=== PATIENT | female | born 1950 | race Caucasian/White ===

== ENCOUNTER → 2017-11-29 06:33 | Outpatient (CLI) | payer MEDICARE, MEDICAID, SELFPAY ==
--- NOTE | 2017-11-29 06:37 | NM_ITS ---
NM juan carlos perf SPECT rest str CLINICAL INDICATION: Chest pain, shortness of breath, hypertension, tobacco use, high cholesterol, positive family history ITS.REASON: CHEST PAIN ORDERING PHYSICIAN: Claudia Guzman PATIENT AGE: 67 years COMPARISON: None DOSE: 10.39 mCi technetium Myoview intravenously at rest followed by 32.0 mCi technetium Myoview following the intravenous administration of 0.4 mg of Lexiscan. Resting blood pressure is 193/77. Stress blood pressure 168/74. FINDINGS: Ejection fraction is calculated to be 55%. SPECT and polar map images reviewed. There is a defect within the anteroseptal region which shows some redistribution on the delayed images. This does not completely fill in on the delayed images. There is also a small defect in the lateral wall towards the base of the heart which is less apparent on the delayed images. IMPRESSION: 1. Normal ejection fraction of 55%. 2. Ischemic changes in the anteroseptal wall and lateral wall at the base of the heart.
--- NOTE | 2017-11-29 06:41 | XR_ITS ---
XR shoulder LT min 2V HISTORY: ITS.REASON: ACUTE PAIN LEFT SHOULDER ORDERING PHYSICIAN: Claudia Guzman PATIENT AGE: 67 years COMPARISON: None FINDINGS: No fracture or dislocation. No lytic or blastic change. There is normal mineralization. There are mild osteoarthritic changes of the glenohumeral joint and acromioclavicular joint. No significant subacromial stenosis. IMPRESSION: Mild osteoarthritic change of the acromioclavicular joint and glenohumeral joint
--- NOTE | 2017-11-29 06:41 | XR_ITS ---
XR chest 2V HISTORY: Chest pain and cough, smoker ITS.REASON: CHEST PAIN,COUGH ORDERING PHYSICIAN: Claudia Guzman PATIENT AGE: 67 years COMPARISON: 08/18/2016 FINDINGS: The cardiomediastinal silhouette and pulmonary vascularity are within normal limits. There is coarsening of the bronchovascular markings consistent with smoking-related lung disease. No lobar consolidation or collapse is evident. There is a calcified granuloma in the left upper lobe.. No acute bony abnormalities. IMPRESSION: Coarsened bronchovascular markings consistent with smoking-related lung disease with prominence of the interstitium. Otherwise negative
--- NOTE | 2017-11-29 07:32 | HMH.ITSHM ---
FISH OIL EZETIMIBE BUSPIRONE RANITIDINE LEVOTHYROXINE METOPROLOL MELOXICAM ASA
--- NOTE | 2017-11-29 08:50 | CI_ITS ---
Cerebrovascular Exam Indications: 433.10 Occlusion/stenosis of carotid artery without cerebral infarction. IMPRESSIONS 1. The bilateral vertebral arteries are patent with normal antegrade flow. 2. Study suggests 50-69% stenosis involving the right internal carotid artery and the left internal carotid artery. History: Risk factors: Current tobacco use. Hypertension. Hyperlipidemia. Carotid duplex study. Complete study and Doppler flow study including spectral analysis, color and mcdonough scale imaging. Height: Height: 152.4cm. Height: 60in. Weight: Weight: 71.7kg. Weight: 157.7lb. Body mass index: BMI: 30.9kg/m^2. Body surface area: BSA: 1.77m^2. Location: Vascular laboratory. Patient status: Outpatient. Tables: Arterial flow: + +--------+--------+ Location V chrystal V ed + +--------+--------+ Right CCA - proximal 80.1cm/s 11.8cm/s + +--------+--------+ Right CCA - distal 82.5cm/s 18.9cm/s + +--------+--------+ Right ECA 165cm/s -------- + +--------+--------+ Right ICA - proximal 266cm/s 51.6cm/s + +--------+--------+ Right ICA - mid 186cm/s 46cm/s + +--------+--------+ Right ICA - distal 147cm/s 26.9cm/s + +--------+--------+ Right vertebral 60.6cm/s -------- + +--------+--------+ Left CCA - proximal 99.9cm/s 19.1cm/s + +--------+--------+ Left CCA - distal 99.9cm/s 18cm/s + +--------+--------+ Left ECA 167cm/s -------- + +--------+--------+ Left ICA - proximal 259cm/s 49.4cm/s + +--------+--------+ Left ICA - mid 126cm/s 27.5cm/s + +--------+--------+ Left ICA - distal 133cm/s 33.4cm/s + +--------+--------+ Left vertebral 57cm/s -------- + +--------+--------+ Velocity ratios: + + + + + + Right, V sys Right, V ed Left, V sys Left, V ed + + + + + + Max ICA/dist CCA 3.22 2.73 2.59 2.74 + + + + + + (Report amended ) Electronically signed by: Teo Waggoner [id number]
--- NOTE | 2017-11-29 08:50 | CA_ITS ---
PROCEDURE: 2-D M-mode and color Doppler study INDICATIONS FOR THE TEST: Chest pain X COPD Heart Murmur Tobacco SmokingX Palpitations Fatigue Syncope Edema HypertensionXDiabetes Mellitus Rheumatic Fever SOBXDOE Obesity HyperlipidemiaX Family History HDX Additional History PATIENT INFORMATION HEIGHT: 60 WEIGHT:158 GENDER: Female B/P:120/80 2-D/M-MODE INTERPRETATION: 2-D MEASUREMENTS OBSERVED VALUES IN CMS Right Ventricular Dimension (RVDd) 1.5 Interventricular Septum (Thickness)(IVsd) .8 Left Ventricular Internal Dimensions(LVIDd) 5.0 Left Ventricular Posterior Wall (Thickness)(LVPWd) .8 Aortic Root 2.1 Aortic Cusp Separation 1.7 Left Atrial Dimensions (LAD) 3.3 2D 1. Left atrium is mildly enlarged, left ventricle is normal size, there is mild concentric left ventricular hypertrophy, visually estimated ejection fraction 55% with no obvious regional wall motion abnormality. 2. The right atrium and right ventricle are normal size and contractility. 3. The aortic valve is minimally thickened and calcified leaflet continue to display mobility. 4. The mitral and tricuspid valve leaflets are minimally thickened. 5. The pulmonic valve is poorly visualized. 6. No significant pericardial effusion noted. DOPPLER INTERROGATION: Doppler interrogation of the aortic, mitral and tricuspid valvular presence of mild mitral and tricuspid regurgitation, tricuspid and jet velocity is insufficient for calculation of the right ventricular systolic pressure, grade 1 diastolic dysfunction seen with tissue Doppler evidence of raised left atrial pressure. CONCLUSION: 1. Mildly enlarged left atrium, normal left ventricular size, mild concentric left ventricular hypertrophy, visually estimated ejection fraction 55% with no obvious regional wall motion abnormality, grade 1 diastolic dysfunction seen with tissue Doppler evidence of raised left atrial pressure. 2. Mild mitral and tricuspid regurgitation 3. No significant pericardial effusion noted.
== END ==
PROVIDERS: Family Provider Family Medicine; PCP Nurse Practitioner; Visit Provider Nurse Practitioner
DX: R07.9 Chest pain, unspecified (principal); M25.512 Pain in left shoulder; R05 Cough; I65.23 Occlusion and stenosis of bilateral carotid arteries
CPT/HCPCS: 71046; 73030; 78452; 93017; 93306; 93880; A9502; J2785

== ENCOUNTER 2017-12-14 09:08 | Day surgery (SDC) | payer MEDICARE, MEDICAID, SELFPAY ==
[2017-12-14] VITALS (11 sets, daily range): BP systolic 131–169; BP diastolic 54–61; PULSE 60–66; RESP 16–18; TEMP 36.7; O2SAT 95–99; BMI 32.8
--- NOTE | 2017-12-14 | IR_ITS ---
CARDIAC CATHETERIZATION DATE OF CATHETERIZATION:12/14/2017 11:40 AM PROCEDURES: 1. Left heart catheterization 2. Left ventriculogram 3. Selective coronary angiogram 4. Catheter placement in the left subclavian artery 5. Subclavian artery angiogram 6. Right femoral artery retrograde angiogram INDICATION FOR TEST: 1. Abnormal Myoview high risk 2. Class IV angina pectoris 3. Preoperative evaluation for left subclavian artery stenosis preceding bypass surgery 4. Right femoral artery and iliac artery stenosis Informed consent was obtained prior to the procedure. COMPLICATIONS: None ESTIMATED BLOOD LOSS: Less than 10 ml. TECHNIQUE: One percent lidocaine was used to anesthetize the right groin. The right femoral artery was accessed via the Seldinger technique. A 4-English sheath was placed in the right femoral artery. The JL-4 and JR-4 catheter was also used to perform left heart catheterization left ventriculogram and selective coronary angiogram. Retrograde angiography of the right femoral and iliac artery system was performed due to atherosclerotic disease and difficulty passing wire. A mini exchange was performed in order to exchange the right and left Sree catheter. The JR 4 catheter was used to selectively intubate the left subclavian artery and perform angiography. At the end of the procedure the sheath was removed good hemostasis was achieved using manual pressure patient transferred to the postop holding area in stable condition ANGIOGRAPHIC RESULTS: 1. The left main artery has a proximal complex greater than 90% stenosis which is either a clot or ruptured plaque with a distal eccentric 80% stenosis 2. The left anterior descending artery has proximal 10% stenoses with a focal 90% stenosis immediately after the first septal pest control worker and large first diagonal artery. The remaining LAD has mild disease. The large first diagonal artery has mid vessel 50% stenosis along a tortuous bend 3. The circumflex artery is a codominant vessel and has an ostial 80% stenosis with a proximal 70 and 90% stenosis 4. The right coronary artery is a codominant system and has a long proximal 80% stenosis with mid vessel 70% stenoses. Distally the posterior descending artery there is a 60-70% stenosis. The posterior lateral ventricular branch also has mid vessel 60% stenosis 5. The NICHOLAS ventriculogram reveals normal 65% 6. The left ventricular end-diastolic pressure 10 mmHg 7. The left subclavian artery has 30% nonflow limiting stenoses with a widely patent proximal ANDREA 8. The right common iliac artery has 60-70% stenoses with a concentric 60% stenosis in the distal external iliac artery IMPRESSION: 1. Critical proximal distal left main disease with critical three-vessel disease 2. Patent left subclavian artery and patent ANDREA 3. Normal ejection fraction 4. Normal left ventricular end-diastolic pressure 5. Moderate to severe right iliac disease as described above PLAN: 1. Patient will be transferred immediately to [facility] under the care of cardiothoracic surgery for urgent CABG at the earliest possible 2. Start aspirin and high intensity statin
[2017-12-14 10:43] LABS: Basophils # 0.1 K/mm3 (0-0.2); Basophils % 0.5 % (0.1-2.0); Eosinophils # 0.4 K/mm3 (0.0-0.4); Eosinophils % 4.5 % (0.1-12.0); Hematocrit 49.1 % (37.0-47.0); Hemoglobin 16.1 g/dL (12.2-16.2); Lymphocytes # 2.4 K/mm3 (0.7-4.5); Lymphocytes % 25.4 K/mm3 (10-50); Mean Corpuscular HGB Conc 32.8 g/dL (31.8-35.4); Mean Corpuscular Hemoglobin 29.1 pg (27.0-31.2); Mean Corpuscular Volume 88.8 fl (81-99); Mean Platelet Volume 8.8 fl (7.4-10.4); Monocytes # 0.5 K/mm3 (0.1-1.0); Monocytes % 5.8 % (1.7-9.3); Neutrophils # 5.9 K/mm3 (1.8-7.8); Neutrophils % 63.8 % (37.0-80.0); Platelet Count 292 K/mm3 (142-424); Red Blood Count 5.53 M/mm3 (4.20-5.40); Red Cell Distribution Width 13.5 % (11.5-17.5); White Blood Count 9.3 K/mm3 (4.8-10.8)
[2017-12-14 10:46] LABS: Anion Gap 13.6 mEq/L (5-15); Blood Urea Nitrogen 18 mg/dL (7-18); Carbon Dioxide 24 mmol/L (21.0-32.0); Chloride 101 mmol/L (98-107); Creatinine Clearance Estimated 61 mL/min (0-300); Creatinine,Serum 1.06 mg/dL (0.55-1.02); Estimated Glomerular Filt Rate 52 ml/min (>60); GFR (African American) 62 ML/MIN (>60); Glucose 110 mg/dL (74-106); Potassium 4.6 mmoL/L (3.5-5.1); Sodium 134 mmol/L (136-145)
== END 2017-12-14 12:08 | disposition short-term general hospital (02) ==
PROVIDERS: Family Provider Family Medicine; PCP Nurse Practitioner; Visit Provider Internal Medicine
DX: I70.8 Atherosclerosis of other arteries (principal); I25.119 Atherosclerotic heart disease of native coronary artery with unspecified angina pectoris; Z72.0 Tobacco use; I65.29 Occlusion and stenosis of unspecified carotid artery; R94.39 Abnormal result of other cardiovascular function study; R94.31 Abnormal electrocardiogram [ECG] [EKG]; Z79.899 Other long term (current) drug therapy
CPT/HCPCS: 36225; 75710; 80048; 85025; 93458; 99152; C1725; C1769; J1644; Q9967

== ENCOUNTER → 2018-04-11 09:11 | Outpatient (REF) | payer MEDICARE, MEDICAID, SELFPAY | LOC: LAB 09:11 | PROVIDERS: Visit Provider Nurse Practitioner | DX: T81.31XA Disruption of external operation (surgical) wound, not elsewhere classified, initial encounter (principal) | CPT/HCPCS: 87070; 87077; 87186; 87205 ==

== ENCOUNTER → 2018-06-26 09:14 | Outpatient (REF) | payer MEDICARE, MEDICAID, SELFPAY | LOC: LAB 09:14 | PROVIDERS: Visit Provider Nurse Practitioner | DX: T81.31XA Disruption of external operation (surgical) wound, not elsewhere classified, initial encounter (principal) | CPT/HCPCS: 87070; 87077; 87186; 87205 ==

== ENCOUNTER → 2018-07-10 09:31 | Outpatient (CLI) | payer MEDICARE, MEDICAID, SELFPAY ==
--- NOTE | 2018-07-10 09:32 | CI_ITS ---
Cerebrovascular Exam IMPRESSIONS 1. The bilateral vertebral arteries are patent with normal antegrade flow. 2. Study suggests 70-99% stenosis involving the left internal carotid artery. Disease progression from the study of 2001. 3. Study suggests 70-99% stenosis involving the right internal carotid artery. Disease progression from the study of 2001. History: Coronary artery disease. Transient ischemic attack. Risk factors: Hypertension. Hyperlipidemia. Carotid duplex study. Complete study and Doppler flow study including spectral analysis, color and mcdonough scale imaging. Location: Vascular laboratory. Patient status: Outpatient. CRITICAL FINDINGS - Reported to: Dr. Tennille Funes office - Read back and verified. - 07/10/2018 - 10:00 - AMEYA 70-99%, [id number]% Tables: Arterial flow: + +--------+--------+ Location V sys V ed + +--------+--------+ Right CCA - proximal 119cm/s 22cm/s + +--------+--------+ Right CCA - distal 98.2cm/s 24.4cm/s + +--------+--------+ Right ECA 231cm/s -------- + +--------+--------+ Right ICA - proximal 394cm/s 132cm/s + +--------+--------+ Right ICA - mid 119cm/s 25.8cm/s + +--------+--------+ Right ICA - distal 96.5cm/s 35.9cm/s + +--------+--------+ Right vertebral 70.7cm/s -------- + +--------+--------+ Left CCA - proximal 123cm/s 23.6cm/s + +--------+--------+ Left CCA - distal 138cm/s 32.3cm/s + +--------+--------+ Left ECA 232cm/s -------- + +--------+--------+ Left ICA - proximal 330cm/s 66.8cm/s + +--------+--------+ Left ICA - mid 164cm/s 40.4cm/s + +--------+--------+ Left ICA - distal 130cm/s 28.1cm/s + +--------+--------+ Left vertebral 42.6cm/s -------- + +--------+--------+ Velocity ratios: + + + + + + Right, V sys Right, V ed Left, V sys Left, V ed + + + + + + Max ICA/dist CCA 4.01 5.41 2.39 2.07 + + + + + + (Report amended ) Electronically signed by: Teo Waggoner [id number]
== END ==
PROVIDERS: Family Provider Family Medicine; PCP Nurse Practitioner; Visit Provider Internal Medicine
DX: I65.23 Occlusion and stenosis of bilateral carotid arteries (principal)
CPT/HCPCS: 93880

== ENCOUNTER 2018-07-18 09:00 | Outpatient (RCR) | payer MEDICARE, MEDICAID, SELFPAY ==
--- NOTE | 2018-04-11 10:08 | HMH.PTOPWND ---
Rehab Outpt Wound Evaluation Rehab OP Wound Evaluation Start: 04/11/18 08:31 Freq: Status: Active Protocol: Document 04/11/18 09:57 GILBERT (Rec: 04/11/18 10:07 GILBERT [id number]) Electronically Signed By Celso Carr, PT 04/11/18 09:57 Subjective/History History History Pt is 67 yo white female who presents with c.o non healing sternal incision x ~ 3 mos S/P CABG x 5 performed ~ 4 mos ago. She reports having several different spots of her incision that have closed and re-opened since her surgery. She reports having trouble healing the incisions from her las surgery which was a lap CCY. Sh reports no c/o pain, but tender to palpation and with dressing changes. She reports PMH of HTN, PAD, hypothyroid, and asthma. Wound Eval Wound Lower Chest Wound Type Incision Is This a Chronic Wound Yes Wound Length (cm) 1.5 Wound Width (cm) 1.0 Wound Bed Appearance Beefy Red Percentage Granulated (%) 100 Wound Margins Description Well Defined Tunneling Position 12 Tunneling Depth (cm) 2.0 Surrounding Tissue Appearance Jeannette Drainage Description Purulent Drainage Amount Small Comment Tegaderm Ag mesh Primary Dressing Composite Wound Problems/Impairments Impairments Problems/Impairmments Palpation Tenderness Subjective C/O Pain Impaired Self Care/Self Management Prognosis Rehab Potential Good Clinical Impression Consistent with Diagnosis Yes Short Term Goals Number of Weeks 4 Decreased Palpation Tenderness Yes: to min Decrease Wound Area Yes: by 25% Decrease Drainage Yes: by 100% Shelter Goals Number of Weeks 8 Decreased Palpation Tenderness Yes: to none Decrease Wound Area Yes: by 75% Patient to be Ind w/ Home Wound Care/ Yes Dressing Changes Outpatient Therapy Plan of Care Treatment Plan May Include Therapeutic Exercise Including Home Yes Exercise Program Manual Therapy Techniques Yes Neuromuscular Re-education Yes Wound Care Yes Eval/Re-Eval Yes Frequency
== END 2018-07-18 09:01 | disposition home or self-care (01) ==
LOC: PT 09:00
PROVIDERS: Family Provider Family Medicine; PCP Nurse Practitioner; Visit Provider Nurse Practitioner
DX: T81.31XA Disruption of external operation (surgical) wound, not elsewhere classified, initial encounter (principal)
CPT/HCPCS: 97162; 97597

== ENCOUNTER → 2018-07-18 14:12 | Outpatient (CLI) | payer MEDICARE, MEDICAID, SELFPAY ==
--- NOTE | 2018-07-18 14:12 | CT_ITS ---
CT angio coronary artery INDICATION: Carotid artery stenosis, abnormal duplex of the carotid artery, decreasing size in left eye ITS.REASON: carotid artery stenosis ORDERING PHYSICIAN: Eddie Null MD PATIENT AGE: 68 years COMPARISON: None TECHNIQUE: Axial images are obtained following the bolus administration of 100 mL's of Isovue-370 contrast. Sagittal and coronal reformatted images are reviewed as well. All CT scans at the facility use one or more dose reduction, viz: automated exposure control, ma/kV adjustment per patient size (including targeted exams where dose is matched to indication, i.e. head), or iterative reconstruction technique. FINDINGS: Right carotid artery: Atherosclerotic changes with calcification involves the aortic arch. The right brachiocephalic artery shows no significant stenosis. Right common carotid artery shows no significant stenosis. Calcific plaque is present in the right carotid bifurcation and proximal ICA. There is severe stenosis of the ostium of the right ICA of 70%. Just distal to the ostium is calcific plaque with severe stenosis. It is somewhat difficult to measure the exact degree of stenosis due to the calcification and being hardening artifact. The stenosis is at least however, 75%. The carotid superior to this region shows no significant narrowing. There is some calcific plaque just proximal to the intracranial portion of the carotid and calcific plaque is also present involving the cavernous portion of the right carotid. Left carotid artery: The common carotid shows no significant stenosis. Irregular calcific plaque is present at the carotid bifurcation and proximal ICA with 50-60% stenosis of the ostium of the left ICA. The upper aspect of the cervical carotid has an unremarkable appearance. Atherosclerotic changes are present involving the cavernous portion of the left ICA. Both vertebral arteries are small with the right vertebral is dominant of the 2 vertebral arteries. Basilar artery is somewhat small. IMPRESSION: 1. Atheromatous changes of the carotid arteries with 70% stenosis of the ostium of the right ICA at least 75% stenosis of the proximal right ICA 1 cm distal to the ostium 2. 50-60% stenosis of the ostium of the left ICA
[2018-07-18 15:13] LABS: Blood Urea Nitrogen 12 mg/dL (7-18); Calcium 8.8 mg/dL (8.5-10.1); Carbon Dioxide 25 mmol/L (21.0-32.0); Chloride 104 mmol/L (98-107); Creatinine,Serum 0.78 mg/dL (0.55-1.02); Estimated Glomerular Filt Rate 73 ml/min (>60); GFR (African American) 89 ML/MIN (>60); Glucose 144 mg/dL (74-106); Sodium 138 mmol/L (136-145)
== END ==
PROVIDERS: Family Provider Family Medicine; PCP Nurse Practitioner; Visit Provider Internal Medicine
DX: I65.23 Occlusion and stenosis of bilateral carotid arteries; E78.5 Hyperlipidemia, unspecified; H54.40 Blindness, one eye, unspecified eye; I20.9 Angina pectoris, unspecified; I48.91 Unspecified atrial fibrillation; I63.9 Cerebral infarction, unspecified; J43.9 Emphysema, unspecified; R07.89 Other chest pain; R42 Dizziness and giddiness; Z95.1 Presence of aortocoronary bypass graft; I11.9 Hypertensive heart disease without heart failure
CPT/HCPCS: 36415; 75574; 80048; Q9967

== ENCOUNTER → 2019-02-09 08:38 | Outpatient (CLI) | payer MEDICARE, MEDICAID, SELFPAY ==
--- NOTE | 2019-02-09 08:40 | CI_ITS ---
Cerebrovascular Exam Indications: 433.10 Occlusion/stenosis of carotid artery without cerebral infarction. IMPRESSIONS 1. The bilateral vertebral arteries are patent with normal antegrade flow. 2. Study suggests less than 20% stenosis involving the right internal carotid artery. Carotid surgery Aug 2018 on right ICA. 3. Study suggests 70-99% stenosis involving the left internal carotid artery. Labs, prior tests, procedures, and surgery: Right endarterectomy. Labs, prior tests, procedures, and surgery: Right endarterectomy. Carotid duplex study. Complete study and Doppler flow study including spectral analysis, color and mcdonough scale imaging. Location: Vascular laboratory. Patient status: Outpatient. Tables: Arterial flow: + +--------+--------+ Location V sys V ed + +--------+--------+ Right CCA - proximal 105cm/s 14.1cm/s + +--------+--------+ Right CCA - distal 106cm/s 20.4cm/s + +--------+--------+ Right ECA 171cm/s -------- + +--------+--------+ Right ICA - proximal 102cm/s 19.6cm/s + +--------+--------+ Right ICA - mid 77cm/s 12.6cm/s + +--------+--------+ Right ICA - distal 112cm/s 29.1cm/s + +--------+--------+ Right vertebral 55.8cm/s -------- + +--------+--------+ Left CCA - proximal 109cm/s 22.8cm/s + +--------+--------+ Left CCA - distal 127cm/s 22.8cm/s + +--------+--------+ Left ECA 248cm/s -------- + +--------+--------+ Left ICA - proximal 272cm/s 54.1cm/s + +--------+--------+ Left ICA - mid 121cm/s 28.9cm/s + +--------+--------+ Left ICA - distal 126cm/s 33.9cm/s + +--------+--------+ Left vertebral 39cm/s -------- + +--------+--------+ Velocity ratios: + + + + + + Right, V sys Right, V ed Left, V sys Left, V ed + + + + + + Max ICA/dist CCA 1.06 1.43 2.14 2.37 + + + + + + (Report amended ) Electronically signed by: Teo Waggoner [id number]
== END ==
PROVIDERS: PCP Internal Medicine Hematology & Oncology; Visit Provider Urology
DX: I65.23 Occlusion and stenosis of bilateral carotid arteries (principal)
CPT/HCPCS: 93880

== ENCOUNTER → 2019-03-10 10:00 | Outpatient (CLI) | payer MEDICARE, MEDICAID, SELFPAY ==
[2019-03-10 10:27] LABS: Basophils # 0.1 K/mm3 (0-0.2); Basophils % 0.6 % (0.1-2.0); Eosinophils # 0.1 K/mm3 (0.0-0.4); Eosinophils % 0.8 % (0.1-12.0); Hematocrit 35.4 % (37.0-47.0); Hemoglobin 11.9 g/dL (12.2-16.2); Lymphocytes # 1.7 K/mm3 (0.7-4.5); Lymphocytes % 20.1 % (10-50); Mean Corpuscular HGB Conc 33.6 g/dL (31.8-35.4); Mean Corpuscular Hemoglobin 27.9 pg (27.0-31.2); Mean Corpuscular Volume 82.9 fl (81-99); Mean Platelet Volume 9.5 fl (7.4-10.4); Monocytes # 0.6 K/mm3 (0.1-1.0); Monocytes % 7.2 % (1.7-9.3); Neutrophils % 71.4 % (37.0-80.0); Platelet Count 226 K/mm3 (142-424); Red Blood Count 4.27 M/mm3 (4.20-5.40); Red Cell Distribution Width 13.7 % (11.5-17.5); White Blood Count 8.4 K/mm3 (4.8-10.8)
[2019-03-10 11:16] LABS: Anion Gap 18.9 mEq/L (5-15); Blood Urea Nitrogen 12 mg/dL (7-18); Calcium 8.4 mg/dL (8.5-10.1); Carbon Dioxide 22 mmol/L (21.0-32.0); Chloride 101 mmol/L (98-107); Creatinine,Serum 1.12 mg/dL (0.55-1.02); Estimated Glomerular Filt Rate 48 ml/min (>60); GFR (African American) 58 ML/MIN (>60); Glucose 110 mg/dL (74-106); Potassium 3.9 mmoL/L (3.5-5.1); Sodium 138 mmol/L (136-145)
== END ==
PROVIDERS: Visit Provider Internal Medicine
DX: Z98.890 Other specified postprocedural states (principal); Z79.899 Other long term (current) drug therapy
CPT/HCPCS: 36415; 80048; 85025

== ENCOUNTER → 2019-03-12 13:19 | Outpatient (CLI) | payer MEDICARE, MEDICAID, SELFPAY ==
--- NOTE | 2019-03-12 13:45 | CT_ITS ---
CT angio neck INDICATION: Cerebrovascular accident, stroke, carotid artery disease, previous surgery ITS.REASON: cta carotids ORDERING PHYSICIAN: Eddie Null MD PATIENT AGE: 68 years COMPARISON: None TECHNIQUE: Axial images are obtained following the intravenous administration 100 mL of Optiray 350 contrast. Sagittal and coronal reformatted images are reviewed as well. All CT scans at the facility use one or more dose reduction, viz: automated exposure control, ma/kV adjustment per patient size (including targeted exams where dose is matched to indication, i.e. head), or iterative reconstruction technique. FINDINGS: Atheromatous changes involving the aortic arch. No significant stenosis of the ostium of the great vessels. There has been an interval right carotid and arterectomy. No significant stenosis is now evident of the carotid artery on the right. There is eccentric atheromatous plaque in the distal right internal carotid artery without significant stenosis. Intracranial calcific plaque also noted. No significant stenosis. Calcific plaque is once again noted at the ostium of the left internal carotid artery in the proximal left ICA. High-grade stenosis involves the ostium of the left internal carotid artery proximally 60% there is approximately 25-30% stenosis involving the proximal internal carotid slightly distal to the ostium. These findings are not significantly changed. Vertebrals are patent. There is proximal 40% stenosis involving the proximal right subclavian artery just distal to the vertebral origin Prior CABG. There is a hyperdense nodule involving the deep lobe of the parotid gland on the right at 1. A x 1.5 cm. This may represent a pleomorphic adenoma not significant changed. IMPRESSION: 1. Status post right carotid artery and arterectomy with resolution of the previously noted stenosis. No significant stenosis evident on the right. 2. Persistent calcific plaque at the ostium of the left internal carotid artery with approximately 60% stenosis not significantly changed. Small amount of calcific plaque just distal to this region with approximately 25-30% stenosis. 3. 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
== END ==
PROVIDERS: PCP Family Medicine; Visit Provider Internal Medicine
DX: I65.29 Occlusion and stenosis of unspecified carotid artery (principal)
CPT/HCPCS: 70498; Q9967

== ENCOUNTER 2019-03-12 16:55 | Emergency (ER) | payer MEDICARE, MEDICAID, SELFPAY ==
[2019-03-12 17:10] VITALS: BP 160/100; PULSE 74; RESP 18; TEMP 36.4; O2SAT 99; BMI 32.0
[2019-03-12 17:17] LABS: Microscopic, Urine URINE MICROSCOPIC (MICROSCOPIC)
[2019-03-12 17:19] LABS: Appearance,Urine CLEAR (Clear); Bilirubin,Urine Negative (Negative); Blood, Urine Negative (Negative); Color,Urine YELLOW (Yellow); Glucose,Urine (UA) Negative (Negative); Ketones,Urine Negative (Negative); Leukocyte Esterase,Urine Negative (Negative); Nitrate,Urine Negative (Negative); Protein,Urine Negative (Negative); Specific Gravity, Urine <= 1.005 (1.005-1.030); Urobilinogen,Urine 0.2 EU/dl (0.2)
[2019-03-12 17:29] LABS: WBC,Urine Occasional #/hpf (0-3)
[2019-03-12 17:30] LABS: Bacteria,Urine Trace /lpf
--- NOTE | 2019-03-12 17:33 | CT_ITS ---
CT abdomen pelvis wo con CLINICAL INDICATION: Left lower quadrant pain, left flank pain, nausea ITS.REASON: left flank ORDERING PHYSICIAN: Celso Saldaña MD PATIENT AGE: 68 years COMPARISON: 08/18/2016 TECHNIQUE: Axial images obtained with sagittal and coronal reformats. All CT scans at the facility use one or more dose reduction, viz: automated exposure control, ma/kV adjustment per patient size (including targeted exams where dose is matched to indication, i.e. head), or iterative reconstruction technique. PROCEDURE: Oral Contrast: None IV Contrast: None . FINDINGS: Lower thorax: No acute finding There is a 1.8 cm isodense lesion in the right hepatic lobe unchanged. Other smaller isodensity's are also noted. These may represent hepatic cyst. Postcholecystectomy change. The spleen, adrenal glands, and pancreas are unremarkable. There is striated nephrogram appearance to both kidneys. Contrast is present within the renal collecting system. The patient had a previous contrast-enhanced study of the neck 4 hours earlier. There are postsurgical changes of the anterior abdominal wall centrally in the upper abdomen with mild diastases. No intestinal obstruction or free air. No evidence of appendicitis. The appendix is not identified. There is colonic diverticulosis. There is some mild stranding of the pericolic fat in the left pelvic region. This is a question clinical significance evident somewhat similar appearance on 08/18/2016. No abscess or free air. No pelvic mass. Prior hysterectomy. There is mild dilatation of the mid abdominal aorta at 2.8 cm. Mild facet arthritic changes are present. IMPRESSION: 1. Colonic diverticulosis. There may be some minimal pericolic inflammatory changes in the sigmoid region raising the question of mild diverticulitis. 2. Striated nephrogram of the kidneys nonspecific and may be seen with polynephritis, acute tubular necrosis, or hypotension. 3. No change multiple isodense lesions of the liver.
--- NOTE | 2019-03-12 17:34 | HMH.EDGENADL ---
ED Disposition Clinical Impression: Diverticulitis Disposition: Home, Self-Care Condition on Discharge: Good Instructions: DI for Low Back Pain Prescriptions: metroNIDAZOLE [Flagyl 500mg Tablet] 500 mg PO Q8H 7 Days #21 tab Referrals: Ortiz Campbell MD [Primary Care Provider] - - Critical Care Critical Care Time: No Attestation: On 03/12/19, the high probability of a clinically significant, sudden or life threatening deterioration of the following system(s) required my full and direct attention, intervention and personal management. The time I documented below is in addition to time spent performing reported procedures but includes the following listed in this critical care notation. Medical Decision Making - Medical Records Medical records reviewed: Yes: I reviewed the patient's medical records. - Rasheed Inquiry Pt receiving controlled substance: No Vital Signs: 03/12/19 17:10 Temperature 97.5 F L Temperature Source Oral Pulse Rate [Right Radial] 74 Respiratory Rate 18 Blood Pressure [Right Arm] 160/100 H Blood Pressure Mean [Right Arm] 120 Blood Pressure Source [Right Arm] Manual Cuff/ Auscultation Blood Pressure Position [Right Arm] Sitting 02 Sat by Pulse Oximetry 99 Oxygen Delivery Method Room Air - Lab Data Lab results reviewed: Yes: I reviewed the patient's lab results. Lab Results 03/12/19 17:11: Urine Color Yellow, Urine Appearance Clear, Urine pH 7.0, Ur Specific [place] <= 1.005, Urine Protein Negative, Urine Glucose (UA) Negative, Urine Ketones Negative, Urine Blood Negative, Urine Nitrate Negative, Urine Bilirubin Negative, Urine Urobilinogen 0.2, Ur Leukocyte Esterase Negative, Urine WBC Occasional, Ur Squamous Epith Cells 3-5, Urine Bacteria Trace 03/12/19 17:50: WBC 7.3, RBC 4.61, Hgb 12.6, Hct 37.0, MCV 80.3 L, MCH 27.3, MCHC 34.0, RDW 13.5, Plt Count 252, MPV 9.3, Neut % (Auto) 63.4, Lymph % (Auto) 25.4, [place] % (Auto) 7.3, Eos % (Auto) 3.4, Baso % (Auto) 0.5, Neut # (Auto) 4.6, Lymph # (Auto) 1.9, [place] # (Auto) 0.5, Eos # (Auto) 0.3, Baso # (Auto) 0.0 03/12/19 17:50: Sodium 136, Potassium 4.4, Chloride 101, Carbon Dioxide 23, Anion Gap 16.4 H, BUN 16 D, Creatinine 1.28 H, Estimated Creat Clear 49, Estimated GFR 41 L, Est GFR ( Amer) 50 L, Glucose 102, Calcium 9.0, Total Bilirubin 0.5, AST 17, ALT 23, Alkaline Phosphatase 95, Total Protein 7.3, Albumin 3.1 L, Globulin 4.2 H, Albumin/Globulin Ratio 0.7 L, Lipase 190 Result diagrams: 03/12/19 17:50 03/12/19 17:50 Orders (Tests/Meds): ED MEDICATIONS Discontinued Medications Generic Name Dose Route Start Last Admin Trade Name Devenq PRN Reason Stop Dose Admin Acetaminophen 500 mg 03/12/19 17:58 03/12/19 18:10 Tylenol 500mg Tablet PO 03/12/19 17:59 500 mg ONCE ONE Administration Ketorolac Tromethamine 30 mg 03/12/19 17:34 Toradol 30mg/Ml Vial IV 03/12/19 17:35 ONCE ONE Metronidazole 500 mg 03/12/19 18:43 Metronidazole 500mg Tablet PO 03/12/19 18:44 ONCE ONE Protocol ORDERS Category Date Time Status CT abdomen pelvis wo con Stat Cat Scan 03/12/19 17:33 Taken - CT Data CT Scan: Abdomen, Pelvis Time Received: 18:[address] Reviewed: Yes: I discussed the CT results w/the radiologist Preliminary Findings: Abnormal (+diverticulitis and interstial nephritis) Medical Decision Narrative: flagyl, oral fluids, see your doctor, return if worse, tylenol General Adult HPI - General Chief complaint: Back Pain/Injury Stated complaint: stomach pain Time Seen by Provider: 03/12/19 17:34 Mode of Arrival: Ambulatory Limitations: No Limitations Description of Symptoms (Recalled from ER Triage Doc. by RN): Pt c/o pain across lower back and LLQ pain x3 days, pt reports pain worsening today. Pt reports she thinks she has a bladder infection . Pt denies burning with urination. Pt reports nausea. - History of Present Illness HPI narrative: mild to mod left flank and lower
--- NOTE | 2019-03-12 17:37 | ED_ITS ---
ED Disposition Clinical Impression: Diverticulitis Disposition: Home, Self-Care Condition on Discharge: Good Instructions: DI for Low Back Pain Prescriptions: metroNIDAZOLE [Flagyl 500mg Tablet] 500 mg PO Q8H 7 Days #21 tab Referrals: Ortiz Campbell MD [Primary Care Provider] - - Critical Care Critical Care Time: No Attestation: On 03/12/19, the high probability of a clinically significant, sudden or life threatening deterioration of the following system(s) required my full and direct attention, intervention and personal management. The time I documented below is in addition to time spent performing reported procedures but includes the fo sally listed in this critical care notation. Medical Decision Making - Medical Records Medical records reviewed: Yes: I reviewed the patient's medical records. - Rasheed Inquiry Pt receiving controlled substance: No Vital Signs: 03/12/19 17:10 Temperature 97.5 F L Temperature Source Oral Pulse Rate [Right Radial] 74 Respiratory Rate 18 Blood Pressure [Right Arm] 160/100 H Blood Pressure Mean [Right Arm] 120 Blood Pressure Source [Right Arm] Manual Cuff/ Auscultation Blood Pressure Position [Right Arm] Sitting 02 Sat by Pulse Oximetry 99 Oxygen Delivery Method Room Air - Lab Data Lab results reviewed: Yes: I reviewed the patient's lab results. Lab Results 03/12/19 17:11: Urine Color Yellow, Urine Appearance Clear, Urine pH 7.0, Ur Specific [place] <= 1.005, Urine Protein Negative, Urine Glucose (UA) Negative, Urine Ketones Negative, Urine Blood Negative, Urine Nitrate Negative, Urine Bilirubin Negative, Urine Urobilinogen 0.2, Ur Leukocyte Esterase Negative, Urine WBC Occasional, Ur Squamous Epith Cells 3-5, Urine Bacteria Trace 03/12/19 17:50: WBC 7.3, RBC 4.61, Hgb 12.6, Hct 37.0, MCV 80.3 L, MCH 27.3, MCHC 34.0, RDW 13.5, Plt Count 252, MPV 9.3, Neut % (Auto) 63.4, Lymph % (Auto) 25.4, [place] % (Auto) 7.3, Eos % (Auto) 3.4, Baso % (Auto) 0.5, Neut # (Auto) 4.6, Lymph # (Auto) 1.9, [place] # (Auto) 0.5, Eos # (Auto) 0.3, Baso # (Auto) 0.0 03/12/19 17:50: Sodium 136, Potassium 4.4, Chloride 101, Carbon Dioxide 23, Anion Gap 16.4 H, BUN 16 D, Creatinine 1.28 H, Estimated Creat Clear 49, Estimated GFR 41 L, Est GFR ( Amer) 50 L, Glucose 102, Calcium 9.0, Total Bilirubin 0.5, AST 17, ALT 23, Alkaline Phosphatase 95, Total Protein 7.3, Albumin 3.1 L, Globulin 4.2 H, Albumin/Globulin Ratio 0.7 L, Lipase 190 Result diagrams: 03/12/19 17:50 03/12/19 17:50 Orders (Tests/Meds): ED MEDICATIONS Discontinued Medications Generic Name Dose Route Start Last Admin Trade Name Devenq PRN Reason Stop Dose Admin Acetaminophen 500 mg 03/12/19 17:58 03/12/19 18:10 Tylenol 500mg Tablet PO 03/12/19 17:59 500 mg ONCE ONE Administration Ketorolac Tromethamine 30 mg 03/12/19 17:34 Toradol 30mg/Ml Vial IV 03/12/19 17:35 ONCE ONE Metronidazole 500 mg 03/12/19 18:43 Metronidazole 500mg Tablet PO 03/12/19 18:44 ONCE ONE Protocol ORDERS Category Date Time Status CT abdomen pelvis wo con Stat Cat Scan 03/12/19 17:33 Taken - CT Data
[2019-03-12 17:56] LABS: Basophils % 0.5 % (0.1-2.0); Eosinophils # 0.3 K/mm3 (0.0-0.4); Eosinophils % 3.4 % (0.1-12.0); Hemoglobin 12.6 g/dL (12.2-16.2); Lymphocytes # 1.9 K/mm3 (0.7-4.5); Lymphocytes % 25.4 % (10-50); Mean Corpuscular Hemoglobin 27.3 pg (27.0-31.2); Mean Corpuscular Volume 80.3 fl (81-99); Mean Platelet Volume 9.3 fl (7.4-10.4); Monocytes # 0.5 K/mm3 (0.1-1.0); Monocytes % 7.3 % (1.7-9.3); Neutrophils # 4.6 K/mm3 (1.8-7.8); Neutrophils % 63.4 % (37.0-80.0); Platelet Count 252 K/mm3 (142-424); Red Blood Count 4.61 M/mm3 (4.20-5.40); Red Cell Distribution Width 13.5 % (11.5-17.5); White Blood Count 7.3 K/mm3 (4.8-10.8)
[2019-03-12 18:07] LABS: Alanine Aminotransferase 23 U/L (12-78); Albumin Level 3.1 gm/dL (3.4-5.0); Albumin/Globulin Ratio 0.7 (1.1-1.8); Alkaline Phosphatase 95 U/L (46-116); Anion Gap 16.4 mEq/L (5-15); Aspartate Amino Transferase 17 U/L (15-37); Bilirubin,Total 0.5 mg/dL (0.2-1.0); Blood Urea Nitrogen 16 mg/dL (7-18); Carbon Dioxide 23 mmol/L (21.0-32.0); Chloride 101 mmol/L (98-107); Creatinine Clearance Estimated 49 mL/min (50-200); Creatinine,Serum 1.28 mg/dL (0.55-1.02); Estimated Glomerular Filt Rate 41 ml/min (>60); GFR (African American) 50 ML/MIN (>60); Globulin 4.2 gm/dl (1.3-3.2); Glucose 102 mg/dL (74-106); Lipase 190 u/L (73-393); Potassium 4.4 mmoL/L (3.5-5.1); Sodium 136 mmol/L (136-145); Total Protein,Serum 7.3 gm/dL (6.4-8.2)
--- NOTE | 2019-03-12 18:08 | PC.NURSE ---
pt to CT
--- NOTE | 2019-03-12 18:41 | PC.NURSE ---
JAJA ESTRADA spoke with Hernando at this time
[2019-03-12 18:52] VITALS: BP 150/86; PULSE 72; RESP 18; O2SAT 99
[2019-03-12 19:05] VITALS: BP 150/86; PULSE 72; RESP 18; TEMP 36.4; O2SAT 99
--- NOTE | 2019-03-12 19:06 | PC.NURSE ---
flagyl prescription called into [facility] pharmacy per pt request
== END 2019-03-12 19:07 | disposition home or self-care (01) ==
PROVIDERS: Emergency Provider Emergency Medicine Emergency Medical Services; PCP Family Medicine
DX: K57.92 Diverticulitis of intestine, part unspecified, without perforation or abscess without bleeding (principal); E03.9 Hypothyroidism, unspecified; E78.5 Hyperlipidemia, unspecified; I10 Essential (primary) hypertension; F17.210 Nicotine dependence, cigarettes, uncomplicated; Z88.0 Allergy status to penicillin; Z88.5 Allergy status to narcotic agent
CPT/HCPCS: 70498; 74176; 80053; 81001; 83690; 85025; 99283; Q9967

== ENCOUNTER 2019-08-23 09:00 | Outpatient (RCR) | payer MEDICARE, SELFPAY ==
--- NOTE | 2019-07-04 09:15 | HMH.PTOPWND ---
Rehab Outpt Wound Evaluation Rehab OP Wound Evaluation Start: 07/04/19 08:54 Freq: Status: Active Protocol: Document 07/04/19 08:54 COLLETTEKYLIE (Rec: 07/04/19 09:15 COLLETTEKYLIE [id number]) Electronically Signed By Santana Magallanes PT 07/04/19 08:54 Subjective/History History History 69 year old female pt. is referred to PT for a wound on her LLE that has not been healing. Wound occured on March 10 when pt. fell on her concrete steps. Pt. has been using bactrin PO. Pt. treated wound at home w/OTC medications for several months w/o healing. Pt. reports that she is not diabetic but states that she smokes about 3 cigarettes a day and has circulatory problems in her LE . Note and eval done by student PT [facility] Subjective Subjective Pt. reports that she is frustrated from having to deal with this wound which she has had since the beginning of March. Note done by student PT [facility] Wound Eval Subjective History Subjective 69 year old female referred to PT for a wound on her LLE that occured March 10 due to a fall on her concrete steps. Note done by student PT [facility] Wound Left Lower [place] Wound Type Abrasion Is This a Chronic Wound Yes Wound Length (cm) 2 Wound Width (cm) 1.4 Wound Bed Appearance Beefy Red,Yellow,Slough Percentage Granulated (%) 90 Percentage of Slough (%) 10 Percentage of Eschar (Yellow) (%) 10 Wound Margins Description Well Defined Surrounding Tissue Temperature Warm Drainage Description Serous Drainage Amount Scant Drainage Odor No Odor Dressing Status Soiled Wound Topical Solution/Irrigant Antibiotic Irrigant Primary Dressing Silver Dressing Comment Tegaderm AG mesh Wound Secondary Dressing Type Absorbant Pad Comment Optifoam light Wound Debridement Method SharpsForceps Wound Debridement Amount of Tissue Minimal Removed
== END 2019-08-23 09:05 | disposition home or self-care (01) ==
LOC: PT 09:00
PROVIDERS: Visit Provider Nurse Practitioner
DX: T14.8XXA Other injury of unspecified body region, initial encounter (principal); M79.605 Pain in left leg
CPT/HCPCS: 97161; 97164; 97597

== ENCOUNTER → 2019-09-12 08:08 | Outpatient (CLI) | payer MEDICARE, SELFPAY ==
--- NOTE | 2019-09-12 08:12 | CA_ITS ---
APPROVED REPORT Procurement Analyst: Lacey Israel CRT Laterality: Bilateral Indications: bilateral carotid artery stenosis Risk Factors Hypertension: Hyperlipidemia Smoking Surgery/Intervention Endarterectomy: right Doppler Spectral Velocity Analysis ECA (R) 196.40/17.10 cm/s ECA (L) 170.00/12.80 cm/s dICA (R) 98.00/24.70 cm/s dICA (L) 127.90/28.40 cm/s Angela (R) 119.70/26.90 cm/s Angela (L) 105.30/25.00 cm/s pICA (R) 87.70/21.40 cm/s pICA (L) 279.30/28.90 cm/s dCCA (R) 90.80/12.90 cm/s dCCA (L) 87.50/19.50 cm/s pCCA (R) 119.10/18.00 cm/s pCCA (L) 104.80/15.70 cm/s Vert (R) 42.20/7.80 cm/s Vert (L) 36.80/36.80 cm/s Conclusion Duplex evaluation demonstrates stenosis of the right proximal internal carotid artery <20% with PSV <140 cm/sec, EDV <100 cm/sec, and IC/CC Ratio <4.0. Duplex evaluation demonstrates stenosis of the left proximal internal carotid artery in the range of 50-69% with PSV =140 cm/sec, EDV <100 cm/sec, and IC/CC Ratio <4.0. Duplex evaluation demonstrates antegrade flow of the bilateral Vertebral Arteries. Electronically signed by : Teo Waggoner MD 09/12/2019 19:14:19
== END ==
PROVIDERS: PCP Nurse Practitioner; Visit Provider Urology
DX: I65.23 Occlusion and stenosis of bilateral carotid arteries (principal)
CPT/HCPCS: 93880

== ENCOUNTER → 2019-11-13 10:06 | Outpatient (POV) | payer MEDICARE, SELFPAY | PROVIDERS: Visit Provider Dermatology | DX: Z00.00 Encounter for general adult medical examination without abnormal findings (principal) ==

== ENCOUNTER → 2019-12-04 08:59 | Outpatient (POV) | payer MEDICARE, SELFPAY | PROVIDERS: PCP Dermatology; Visit Provider Dermatology | DX: Z00.00 Encounter for general adult medical examination without abnormal findings (principal) ==

== ENCOUNTER → 2019-12-18 09:03 | Outpatient (POV) | payer MEDICARE, SELFPAY | PROVIDERS: PCP Dermatology; Visit Provider Dermatology | DX: Z00.00 Encounter for general adult medical examination without abnormal findings (principal) ==

== ENCOUNTER → 2020-02-13 08:24 | Outpatient (CLI) | payer MEDICARE, SELFPAY ==
[2020-02-13 10:42] LABS: Alanine Aminotransferase 13 U/L (12-78); Albumin Level 4.5 g/dl (3.5-5.0); Alkaline Phosphatase 66 U/L (38-126); Aspartate Amino Transferase 21 U/L (14-36); Bilirubin,Indirect 0.7 mg/dL (0.0-0.9); Bilirubin,Total 0.7 mg/dl (0.2-1.3); Bilirubin,Unconjugated 0.9 mg/dL (0.0-1.1); Chol/HDL Ratio 2.3 (1-3.5); Cholesterol 138 mg/dl (140-200); HDL Cholesterol 60 mg/dl (40-60); Total Protein,Serum 6.9 g/dl (6.3-8.2); Triglycerides 147 mg/dl (30-150); VLDL Cholesterol 29 mg/dL (0-40)
[2020-02-13 10:53] LABS: Direct LDL Cholesterol 75.41 mg/dL (100-129)
== END ==
PROVIDERS: Visit Provider Urology
DX: E78.2 Mixed hyperlipidemia (principal); I25.10 Atherosclerotic heart disease of native coronary artery without angina pectoris
CPT/HCPCS: 36415; 80061; 80076

== ENCOUNTER → 2020-03-19 13:27 | Outpatient (CLI) | payer MEDICARE, MEDICAID, SELFPAY ==
--- NOTE | 2020-03-19 13:28 | CA_ITS ---
APPROVED REPORT Boring Machine Operator Helper: Vi Narvaez RVT Laterality: Bilateral Study Quality: Adequate Indications: carotid bruit, Carotid stenosis Risk Factors Hypertension: Hyperlipidemia Surgery/Intervention Endarterectomy: right Doppler Spectral Velocity Analysis ECA (R) 106.10/15.80 cm/s ECA (L) 229.60/16.00 cm/s dICA (R) 100.00/8.20 cm/s dICA (L) 102.80/20.40 cm/s Angela (R) 105.60/15.30 cm/s Angela (L) 105.60/18.40 cm/s pICA (R) 122.60/18.00 cm/s pICA (L) 240.40/42.30 cm/s dCCA (R) 102.10/15.40 cm/s dCCA (L) 112.90/17.20 cm/s pCCA (R) 93.70/12.80 cm/s pCCA (L) 109.20/18.40 cm/s Vert (R) 43.90/8.20 cm/s Vert (L) 34.40/7.40 cm/s ICA/CCA 1.20 ICA/CCA 2.13 Conclusion Study suggests less than 20% stenosis of the right internal cartoid artery unchanged from the 09/12/19 study. Study suggests 50-69% stenosis of the left internal cartoid artery unchanged from the 09/12/19 study. Antegrade flow seen bilateral vertebral arteries. Electronically signed by : Teo Waggoner MD 03/19/2020 16:14:16
--- NOTE | 2020-03-19 13:28 | CT_ITS ---
PROCEDURE: CT ABDOMEN PELVIS WO CON CLINICAL INDICATION: AAA Follow-up abdominal aortic aneurysm COMPARISON: [facility] CT abdomen pelvis wo con from 03/12/2019 TECHNIQUE: Axial images obtained with sagittal and coronal reformats. All CT scans at the facility use one or more dose reduction, viz: automated exposure control, ma/kV adjustment per patient size (including targeted exams where dose is matched to indication, i.e. head), or iterative reconstruction technique. FINDINGS: LOWER THORAX: No acute finding ABDOMEN & PELVIS: No change in the 1.6 cm right hepatic lobe cyst. There has been a prior cholecystectomy. There has been a prior median sternotomy. The spleen, adrenal glands, pancreas, and kidneys have an unremarkable appearance. There is mild dilatation of the infrarenal abdominal aorta measuring up to 2.5 cm transverse and 2.6 cm AP not significantly changed. No evidence of acute retroperitoneal hemorrhage. There are few scattered small retroperitoneal lymph nodes which are not significantly changed. There are scattered colonic diverticula but no evidence of diverticulitis. There are post hysterectomy changes. No evidence of appendicitis, intestinal obstruction, or free air. IMPRESSION: Stable CT appearance of the abdomen and pelvis. No change in the infrarenal abdominal aortic aneurysm Dictated by: Teo Waggoner MD 03/20/2020 12:58 Electronically signed by Teo Waggoner MD in [place] 03/20/2020 12:58
== END ==
PROVIDERS: PCP Nurse Practitioner; Visit Provider Urology
DX: E78.5 Hyperlipidemia, unspecified (principal); I10 Essential (primary) hypertension; I25.10 Atherosclerotic heart disease of native coronary artery without angina pectoris; I63.9 Cerebral infarction, unspecified; J43.9 Emphysema, unspecified; R42 Dizziness and giddiness; Z95.1 Presence of aortocoronary bypass graft; I73.9 Peripheral vascular disease, unspecified; I65.23 Occlusion and stenosis of bilateral carotid arteries
CPT/HCPCS: 74176; 93880; Q9967

== ENCOUNTER 2020-06-21 17:37 | Emergency (ER) | payer MEDICARE, MEDICAID, SELFPAY ==
[2020-06-21 17:51] VITALS: BP 148/82; PULSE 91; RESP 20; O2SAT 97; BMI 31.2
--- NOTE | 2020-06-21 18:08 | HMH.EDUTC ---
[facility] [place] Clinical Impression: Cellulitis of leg without foot, right, Wound infection Disposition: Home, Self-Care Condition on Discharge: Good Instructions: Cellulitis Additional Instructions: Follow up with your primary care physician on Tuesday for a wound recheck to make sure this is starting to get better. Take the medications as prescribed. Apply the topical antibiotic ointment (mupirocin) as directed. You should not be allergic to it going by your allergy list. Rest the leg and keep it elevated as much time as tolerated. IF YOU HAVE FEVER, CHILLS, OR ANY WORSENING SYMPTOMS PLEASE GO STRAIGHT TO THE ER Prescriptions: Sulfamethoxazole/Trimethoprim [Bactrim 400-80 mg (SS) Tablet] 1 tab PO BID 10 Days #20 tab Transmission Status: Received by [id number] Mupirocin [Bactroban 2% Ointment 22gm tube] 1 applicatio TP TID 7 Days #1 tube Transmission Status: Received by [id number] clindamycin HCL [Clindamycin HCl 300mg Cap] 300 mg PO Q8 10 Days #30 cap Transmission Status: Received by [id number] Referrals: Claudia Guzman APRN [Primary Care Provider] - Time of Disposition: 19:19 Medical Decision Making - Medical Records Medical records reviewed: No: I reviewed the patient's medical records. - Rasheed Inquiry Pt receiving controlled substance: No Vital Signs: 06/21/20 17:51 06/21/20 19:11 06/21/20 19:20 Temperature 98.8 F 98.8 F Temperature Source Oral Pulse Rate 91 H Pulse Rate [Right Brachial] 91 H Respiratory Rate 20 20 Blood Pressure 148/82 H Blood Pressure [Right Arm] 148/82 H Blood Pressure Mean [Right Arm] 104 Blood Pressure Source [Right Arm] Automatic Cuff Blood Pressure Position [Right Arm] Sitting 02 Sat by Pulse Oximetry 97 Oxygen Delivery Method Room Air - Lab Data Lab results reviewed: Yes: I reviewed the patient's lab results. Lab Results 06/21/20 18:30: WBC 7.4, RBC 4.66, Hgb 13.8, Hct 38.9, MCV 83.4, MCH 29.6, MCHC 35.6 H, RDW 14.4, Plt Count 254, MPV 9.3, Neut % (Auto) 58.2, Lymph % (Auto) 28.4, [place] % (Auto) 9.4 H, Eos % (Auto) 2.9, Baso % (Auto) 1.1, Neut # (Auto) 4.3, Lymph # (Auto) 2.1, [place] # (Auto) 0.7, Eos # (Auto) 0.2, Baso # (Auto) 0.1, ESR 44 H 06/21/20 18:30: Sodium 136, Potassium 4.4, Chloride 104, Carbon Dioxide 21 L, Anion Gap 15.4 H, BUN 23 H, Creatinine 1.60 H, Estimated Creat Clear 37, Estimated GFR 32 L, Est GFR ( Amer) 38 L, Glucose 102 H, Calcium 9.9, Total Bilirubin 1.1, AST 24, ALT 12, Alkaline Phosphatase 83, Total Protein 7.3, Albumin 4.1, Globulin 3.2, Albumin/Globulin Ratio 1.3 Result diagrams: 06/21/20 18:30 06/21/20 18:30 Orders (Tests/Meds): ED MEDICATIONS Discontinued Medications Generic Name Dose Route Start Last Admin Trade Name Freq PRN Reason Stop Dose Admin Clindamycin HCl 300 mg 06/21/20 19:19 06/21/20 19:32 Cleocin 150mg Capsule PO 06/21/20 19:20 300 mg ONCE ONE Administration Protocol ORDERS Category Date Time Status Wound Culture and Gram Stain Stat Micro 06/21/20 18:25 Results [facility] [place] - General Stated complaint: laceration R leg Time Seen by Provider: 06/21/20 18:08 Mode of Arrival: Ambulatory Source of Information: Patient Limitations: No Limitations HEENT Symptoms (Recalled from RN notes): No Resp Symptoms (Recalled from RN notes): No Skin Symptoms (Recalled from RN notes): Yes MS Symptoms (Recalled from RN notes): No Functional Status (Recalled from RN notes): WNL - History of Present Illness Provider Complaint: She states that approx 1 week ago her dog jumped up on here and scratched her right lower leg with a toe nail. The wound seemed like it was healing, but over the past 2 days it has began to get red around it and have some clear drainage. She denies that she is diabetic. She is allergic to tetanus immunizations. - Related Data Home Medications Medication Instructions Recorded Confirmed al
[2020-06-21 19:01] LABS: Basophils # 0.1 K/mm3 (0-0.2); Basophils % 1.1 % (0.1-2.0); Eosinophils # 0.2 K/mm3 (0.0-0.4); Eosinophils % 2.9 % (0.1-12.0); Hematocrit 38.9 % (37.0-47.0); Hemoglobin 13.8 g/dL (12.2-16.2); Lymphocytes # 2.1 K/mm3 (0.7-4.5); Lymphocytes % 28.4 % (10-50); Mean Corpuscular HGB Conc 35.6 g/dL (31.8-35.4); Mean Corpuscular Hemoglobin 29.6 pg (27.0-31.2); Mean Corpuscular Volume 83.4 fl (81-99); Mean Platelet Volume 9.3 fl (7.4-10.4); Monocytes # 0.7 K/mm3 (0.1-1.0); Monocytes % 9.4 % (1.7-9.3); Neutrophils # 4.3 K/mm3 (1.8-7.8); Neutrophils % 58.2 % (37.0-80.0); Platelet Count 254 K/mm3 (142-424); Red Blood Count 4.66 M/mm3 (4.20-5.40); Red Cell Distribution Width 14.4 % (11.5-17.5); White Blood Count 7.4 K/mm3 (4.8-10.8)
[2020-06-21 19:06] LABS: Alanine Aminotransferase 12 U/L (12-78); Albumin Level 4.1 g/dl (3.5-5.0); Albumin/Globulin Ratio 1.3 (1.1-1.8); Alkaline Phosphatase 83 U/L (38-126); Anion Gap 15.4 mEq/L (5-15); Aspartate Amino Transferase 24 U/L (14-36); Bilirubin,Total 1.1 mg/dl (0.2-1.3); Blood Urea Nitrogen 23 mg/dl (7-17); Calcium 9.9 mg/dl (8.4-10.2); Carbon Dioxide 21 mmol/L (22.0-30.0); Chloride 104 mmol/L (98-107); Creatinine Clearance Estimated 37 mL/min (50-200); Estimated Glomerular Filt Rate 32 ml/min (>60); GFR (African American) 38 ML/MIN (>60); Globulin 3.2 g/dL (1.3-3.2); Glucose 102 mg/dl (74-100); Potassium 4.4 mmoL/L (3.5-5.1); Sodium 136 mmol/L (136-145); Total Protein,Serum 7.3 g/dl (6.3-8.2)
[2020-06-21 19:11] VITALS: TEMP 37.1
[2020-06-21 19:20] VITALS: BP 148/82; PULSE 91; RESP 20; TEMP 37.1; O2SAT 97
[2020-06-21 19:31] LABS: Erythrocyte Sedimentation Rate 44 mm/hr (0-30)
== END 2020-06-21 19:30 | disposition home or self-care (01) ==
PROVIDERS: Emergency Provider Nurse Practitioner Family; PCP Nurse Practitioner
DX: L03.115 Cellulitis of right lower limb (principal); I48.20 Chronic atrial fibrillation, unspecified; I10 Essential (primary) hypertension; E78.5 Hyperlipidemia, unspecified; J44.9 Chronic obstructive pulmonary disease, unspecified; E03.9 Hypothyroidism, unspecified; Z86.73 Personal history of transient ischemic attack (TIA), and cerebral infarction without residual deficits; F17.210 Nicotine dependence, cigarettes, uncomplicated; Z88.0 Allergy status to penicillin; Z88.7 Allergy status to serum and vaccine; Z88.8 Allergy status to other drugs, medicaments and biological substances; Z95.1 Presence of aortocoronary bypass graft; Z90.710 Acquired absence of both cervix and uterus
CPT/HCPCS: G0463; 80053; 85025; 85651; 87070; 87077; 87186; 87205; 99202

== ENCOUNTER → 2020-09-30 10:57 | Outpatient (CLI) | payer MEDICARE, MEDICAID, SELFPAY ==
--- NOTE | 2020-09-30 10:58 | CA_ITS ---
APPROVED REPORT Inventory Control Associate: Vi Narvaez RVT Laterality: Bilateral Study Quality: Good Indications: dennis Risk Factors Hypertension: Hyperlipidemia Surgery/Intervention Endarterectomy: right Doppler Spectral Velocity Analysis ECA (R) 222.90/9.00 cm/s ECA (L) 261.40/12.00 cm/s dICA (R) 111.20/19.20 cm/s dICA (L) 131.50/30.70 cm/s Angela (R) 85.50/12.80 cm/s Angela (L) 280.10/17.10 cm/s pICA (R) 129.40/8.60 cm/s pICA (L) 280.10/44.40 cm/s dCCA (R) 102.70/11.80 cm/s dCCA (L) 111.50/11.50 cm/s pCCA (R) 78.10/11.80 cm/s pCCA (L) 125.60/19.20 cm/s Vert (R) 41.00/11.50 cm/s Vert (L) 36.60/9.60 cm/s ICA/CCA 1.26 ICA/CCA 2.51 Findings Study suggests less than 20% stenosis of the right internal cartoid artery unchanged from the 03/19/20 study. Study suggests 50-69% stenosis of the left internal cartoid artery unchanged from the 03/19/20 study. Antegrade flow seen bilateral vertebral arteries. Conclusion Study suggests less than 20% stenosis of the right internal cartoid artery unchanged from the 03/19/20 study. Study suggests 50-69% stenosis of the left internal cartoid artery unchanged from the 03/19/20 study. Antegrade flow seen bilateral vertebral arteries. Electronically signed by : Teo Waggoner MD 09/30/2020 17:06:05
== END ==
PROVIDERS: PCP Nurse Practitioner; Visit Provider Nurse Practitioner Family
DX: I25.10 Atherosclerotic heart disease of native coronary artery without angina pectoris; I65.23 Occlusion and stenosis of bilateral carotid arteries; E78.5 Hyperlipidemia, unspecified; I48.91 Unspecified atrial fibrillation; I51.7 Cardiomegaly; J43.9 Emphysema, unspecified; Z95.1 Presence of aortocoronary bypass graft
CPT/HCPCS: 93880

== ENCOUNTER → 2021-04-01 06:51 | Outpatient (CLI) | payer MEDICARE, MEDICAID, SELFPAY ==
--- NOTE | 2021-04-01 07:03 | CT_ITS ---
PROCEDURE: CT ABDOMEN PELVIS WO CON CLINICAL INDICATION: PAD COMPARISON: CT CT ABDOMEN PELVIS WO CON from 03/19/2020 TECHNIQUE: Axial images obtained with sagittal and coronal reformats. All CT scans at the facility use one or more dose reduction, viz: automated exposure control, ma/kV adjustment per patient size (including targeted exams where dose is matched to indication, i.e. head), or iterative reconstruction technique. FINDINGS: Lower thorax: No acute finding ABDOMEN: Liver: There is a stable fatty cyst posterior aspect right lobe of the liver unchanged in size and appearance from the previous study Gallbladder: Post cholecystectomy Pancreas: No masses or peripancreatic fluid collections. Spleen: unremarkable Adrenals: unremarkable Kidneys/ureters: The kidneys are normal size and no calculi and there is no obstructive uropathy. There is vascular calcification in each kidney. ABDOMEN & PELVIS: throughout the colon. There mild diffuse diverticulosis of the transverse and descending colon. And sigmoid colon, Stomach bowel: Nondistended. No obvious mass or thickening. The small bowel appears normal. There is scattered stool and gas seen throughout the colon. Mild diffuse diverticulosis of the transverse and descending colon. There is prominent diverticulosis of the sigmoid colon but there is no evidence of diverticulitis. Peritoneum: No abnormal fluid collections. No obvious inflammatory changes. No free air. Lymph nodes: No enlarged lymph nodes apparent. Vasculature: Prominent arthrosclerotic calcification of the abdominal aorta, celiac axis and splenic artery. There is prominent calcification of the proximal superior mesenteric artery. There is stable mild dilatation of the aorta measuring 2.7 x 2.7 cm tapering to normal caliber at the bifurcation basically unchanged in size and overall appearance from the previous year's exam. Bones: Mild to moderate multilevel degenerate changes lower thoracic upper lumbar spine. PELVIS: Reproductive: Post hysterectomy Bladder: Bladder is somewhat decompressed but appears normal, there is no free fluid in the pelvis. Appendix: Unremarkable. No distention or periappendiceal phlegmonous change. IMPRESSION: No acute finding, stable prominent arthrosclerotic calcification as mentioned above, stable small hepatic cyst right lobe and stable borderline aneurysmal dilatation of the infrarenal aorta Dictated by: Dr. Mahesh Ramirez MD 04/01/2021 07:33 Dr. Mahesh Ramirez MD in [place] 04/01/2021 07:33
--- NOTE | 2021-04-01 07:13 | CA_ITS ---
APPROVED REPORT Stonemason Apprentice: KASH Laterality: Bilateral Indications: dennis/dizziness Risk Factors Hypertension: Hyperlipidemia Smoking Surgery/Intervention Endarterectomy: right Doppler Spectral Velocity Analysis ECA (R) 476.10/35.10 cm/s ECA (L) 181.10/9.40 cm/s dICA (R) 135.80/31.00 cm/s dICA (L) 139.00/27.80 cm/s Angela (R) 119.80/25.70 cm/s Angela (L) 256.20/30.70 cm/s pICA (R) 120.80/11.80 cm/s pICA (L) 391.00/59.70 cm/s dCCA (R) 133.70/20.30 cm/s dCCA (L) 145.80/23.50 cm/s pCCA (R) 80.20/16.00 cm/s pCCA (L) 141.40/23.10 cm/s Vert (R) 63.80/14.20 cm/s Vert (L) 47.00/17.10 cm/s ICA/CCA 1.02 ICA/CCA 2.68 Findings Duplex evaluation demonstrates stenosis of the right proximal internal carotid artery 20% , unchanged from study 09/2020 Duplex evaluation demonstrates stenosis of the left proximal internal carotid artery in the range of 50-69%(upper end of scale), unchanged from study 09/2020. Conclusion Duplex evaluation demonstrates stenosis of the right proximal internal carotid artery 20% , unchanged from study 09/2020 Duplex evaluation demonstrates stenosis of the left proximal internal carotid artery in the range of 50-69%(upper end of scale), unchanged from study 09/2020. Electronically signed by : Teo Waggoner MD 04/02/2021 16:10:34
--- NOTE | 2021-04-01 07:13 | CA_ITS ---
APPROVED REPORT EXAM: Comprehensive 2D, Doppler, and color-flow Echocardiogram Cell Support Operator: Kate Funes RT(R) Ht: 5 ft 0 in Wt: 173lbs BSA: 1.76 BP: 166/51 mmHg Indications: CP, smoker, HTN, SOB, hyperlipidemia, CABG, AFIB, AAA 2D Dimensions LVOT 1.84 cm (M/F) 1.5-2.5 LA Volume 50.40 mL LA Volume Index 28.60 mL/m2 (M/F) 16-34 M-Mode Dimensions RVDd 2.24 cm (0.9-2.6) LA Diam 3.67 cm (1.9-4.0) LVDd 4.71 cm (3.5-5.7) Ao Diam 2.99 cm (2.0-3.7) LVDs 3.57 cm (3.5-5.7) IVSd 0.76 cm (0.6-1.1) PWd 0.80 cm (0.6-1.1) EF (Teich) 48.20% FS 24.20% EDV (Teich) 102.90 mL ESV (Teich) 53.30 mL LV Diastology E Decel Time 250.00 (160-240 msec) E/A Ratio 0.70 MED E' 3.80 (< 7 cm/sec) E'/MED E' Ratio 23.63 (>14) LAT E' 5.70 (<10 cm/sec) E/LAT E' Ratio 15.75 (>14) Mitral Valve MV E Max Gerald. 90.00 (40-130 cm/s) MV A Velocity 128.00 (40-130 cm/s) E/A Ratio 0.70 MV Decel. Time 250.00 (160-240 ms) MV PHT 73.00 ms Left Ventricle Left atrium is moderately enlarged, left ventricle is normal size, mild concentric left ventricular hypertrophy, visually estimated ejection fraction 55% with no regional wall motion abnormality, grade 1 diastolic dysfunction seen with tissue Doppler evidence of raise left atrial pressure. Right Ventricle Right atrium and right ventricle are mildly enlarged with normal contractility. Aortic Valve Aortic valve is minimally thickened and fibrosed, there is no aortic stenosis or aortic insufficiency. Mitral Valve Mitral valve leaflets are minimally thickened, there is mild mitral regurgitation. Tricuspid Valve Tricuspid grossly normal, there is mild tricuspid regurgitation, tricuspid regurgitation jet velocity is inadequate for calculation of the right ventricular systolic pressure. Pulmonic Valve Pulmonic valve is poorly visualized. Great Vessels Aortic root is normal size. Pericardium No significant pericardial effusion noted. Conclusion 1. Moderately enlarged left atrium, normal left ventricular size, mild concentric left ventricular hypertrophy, visually estimated ejection fraction 55% with no regional wall motion abnormality, grade 1 diastolic dysfunction seen with tissue Doppler evidence of raise left atrial pressure. 2. Mild mitral and tricuspid regurgitation. 3. No significant pericardial effusion noted. Electronically signed by : Al Awad, 04/02/2021 12:53:45
== END ==
PROVIDERS: PCP Nurse Practitioner Family; Visit Provider Physician Assistant
DX: I51.7 Cardiomegaly; I25.10 Atherosclerotic heart disease of native coronary artery without angina pectoris; I48.91 Unspecified atrial fibrillation; E78.5 Hyperlipidemia, unspecified; I65.23 Occlusion and stenosis of bilateral carotid arteries; I73.9 Peripheral vascular disease, unspecified; Z95.1 Presence of aortocoronary bypass graft
CPT/HCPCS: 74176; 93306; 93880

== ENCOUNTER → 2021-05-20 09:11 | Outpatient (CLI) | payer MEDICARE, MEDICAID, SELFPAY ==
[2021-05-20 10:31] LABS: Blood Urea Nitrogen 17 mg/dl (7-17)
[2021-05-20 10:32] LABS: Estimated Glomerular Filt Rate 49 ml/min (>60); GFR (African American) 59 ML/MIN (>60)
== END ==
PROVIDERS: Physician Assistant; Visit Provider Internal Medicine
DX: Z01.812 Encounter for preprocedural laboratory examination (principal)
CPT/HCPCS: 36415; 82565; 84520

== ENCOUNTER → 2021-05-21 11:03 | Outpatient (CLI) | payer MEDICARE, MEDICAID, SELFPAY ==
--- NOTE | 2021-05-21 11:03 | CT_ITS ---
Procedure: CT ANGIO ABDOMEN/FEMORAL CLINICAL HISTORY: claudication/pad Peripheral artery disease COMPARISON: XA BCBILAT CL bolus katharine aortagram BI from 03/07/[address] abdomen pelvis wo con from 03/12/[address] ABDOMEN PELVIS WO CON from 04/01/2021 TECHNIQUE: IV Contrast: 100ml Isovue 370 Axial images obtained with sagittal and coronal reformats. All CT scans at the facility use one or more dose reduction, viz: automated exposure control, ma/kV adjustment per patient size (including targeted exams where dose is matched to indication, i.e. head), or iterative reconstruction technique. FINDINGS: Aorta: Diffuse atherosclerotic changes. There is mild fusiform dilatation of the infrarenal portion of the abdominal aorta at 2.4 cm narrowing to 8 mm and then dilated again at 1.8 cm.. The aorta at the bifurcation is normal in caliber at 1.3 cm. Celiac artery: 50 percent ostial stenosis with diffuse calcific atheromatous plaque. Segmental stenosis involves the splenic and hepatic artery left gastric and gastroduodenal and pancreaticoduodenal arteries. The calcific plaque prohibits evaluation of the degree of stenosis. SMA: Diffuse atheromatous calcific plaque with severe stenosis of the ostium of 60-70 percent. Segmental stenosis and involves the mid aspect of the SMA with calcific plaque with severe stenosis of the SMA approximately 5 cm distal to the ostium of approximately 70 percent. The ROBBY is patent Renal arteries: Calcific plaque is present at the ostium of the left renal artery with at least 50 percent ostial stenosis. High-grade stenosis at the ostium of the right renal artery some from calcific plaque of 60-70 percent. Segmental stenosis involving the inter lobar arteries secondary to calcific plaque. Iliacs: Diffuse calcific atheromatous plaque. There is a external right iliac artery stent with high-grade stenosis of 80-90 percent. Left common iliac artery stent is widely patent. 50 percent stenosis is present at the ostium of the left external iliac artery. Right lower extremity runoff: Long segment occlusion of the SFA with reconstitution distally at Jori's canal. Segmental areas of stenosis of the popliteal and tibial peroneal trunk the as well as the trifurcation vessels with diffuse small vessel disease. The anterior tib and posterior tib is patent to the ankle. The peroneal ends at the mid to distal calf region. Left lower extremity runoff: The SFA is occluded proximally with reconstitution at the mid SFA with severe segmental areas of stenosis. The popliteal is patent as is the tibial peroneal trunk. The posterior tibial artery and anterior tibial artery are patent to the ankle. The peroneal artery is patent to the lower calf. Prior CABG. Diastasis of the anterior abdominal wall at the sub xiphoid region containing fat. No change hypodensities of the liver which may be due to cysts. Colonic diverticulosis. No evidence of diverticulitis.. IMPRESSION: Abnormal angio abdomen and femoral runoff with diffuse atheromatous changes with mild fusiform aneurysmal dilatation of the abdominal aorta at 2.4 cm. 50 percent ostial stenosis of the celiac artery and 60 is 70 percent ostial stenosis of the SMA with a 70 percent stenosis 5 cm distal to the SMA origin, 50 percent ostial stenosis of the renal artery on the left and 60-70 percent ostial stenosis of the right renal artery. There is diffuse segmental stenosis of the runoff vessels on both sides with severe small vessel disease in the calf. Severe stenosis within the right iliac artery stent of 80-90 percent and 50 percent stenosis of the ostium of the left external iliac artery Occluded bilateral SFA's with reconstitution distally with 2 vessel runoff to the ankle on
== END ==
PROVIDERS: PCP Nurse Practitioner Family; Visit Provider Physician Assistant
DX: I71.4 Abdominal aortic aneurysm, without rupture (principal); R20.0 Anesthesia of skin; I70.213 Atherosclerosis of native arteries of extremities with intermittent claudication, bilateral legs
CPT/HCPCS: 75635; Q9967

== ENCOUNTER → 2021-06-03 09:34 | Outpatient (CLI) | payer MEDICARE, MEDICAID, SELFPAY ==
[2021-06-03 10:17] LABS: Basophils # 0.1 K/mm3 (0-0.2); Basophils % 1.1 % (0.1-2.0); Eosinophils # 0.3 K/mm3 (0.0-0.4); Eosinophils % 3.7 % (0.1-12.0); Hemoglobin 13.9 g/dL (12.2-16.2); Lymphocytes # 3.1 K/mm3 (0.7-4.5); Lymphocytes % 33.4 % (10-50); Mean Corpuscular HGB Conc 32.3 g/dL (31.8-35.4); Mean Corpuscular Hemoglobin 28.2 pg (27.0-31.2); Mean Corpuscular Volume 87.2 fl (81-99); Mean Platelet Volume 10.2 fl (7.4-10.4); Monocytes # 0.6 K/mm3 (0.1-1.0); Neutrophils % 54.8 % (37.0-80.0); Platelet Count 258 K/mm3 (142-424); Red Blood Count 4.93 M/mm3 (4.20-5.40); Red Cell Distribution Width 15.4 % (11.5-17.5); White Blood Count 9.2 K/mm3 (4.8-10.8)
[2021-06-03 11:34] LABS: Anion Gap 15.1 mEq/L (5-15); Blood Urea Nitrogen 16 mg/dl (7-17); Calcium 9.2 mg/dl (8.4-10.2); Carbon Dioxide 22 mmol/L (22.0-30.0); Chloride 104 mmol/L (98-107); Estimated Glomerular Filt Rate 55 ml/min (>60); GFR (African American) 66 ML/MIN (>60); Glucose 107 mg/dl (74-100); Potassium 4.1 mmoL/L (3.5-5.1); Sodium 137 mmol/L (136-145)
== END ==
PROVIDERS: Visit Provider Nurse Practitioner Family
DX: E78.5 Hyperlipidemia, unspecified (principal); I10 Essential (primary) hypertension; I25.10 Atherosclerotic heart disease of native coronary artery without angina pectoris; I48.91 Unspecified atrial fibrillation; I65.29 Occlusion and stenosis of unspecified carotid artery; I73.9 Peripheral vascular disease, unspecified; R20.0 Anesthesia of skin; Z95.1 Presence of aortocoronary bypass graft; Z01.812 Encounter for preprocedural laboratory examination; Z20.822 Contact with and (suspected) exposure to COVID-19
CPT/HCPCS: 36415; 80048; 85025; U0003

== ENCOUNTER 2021-06-05 09:21 | Day surgery (SDC) | payer MEDICARE, MEDICAID, SELFPAY ==
[2021-06-05] VITALS (49 sets, daily range): BP systolic 100–182; BP diastolic 38–86; PULSE 47–65; RESP 18–20; O2SAT 92–100; BMI 34.7
--- NOTE | 2021-06-05 07:11 | IR_ITS ---
APPROVED REPORT Patient Location: Outpatient PROCEDURES Right femoral arterial access Right retrograde femoral angiogram Angioplasty to the right external iliac artery Catheter placed into the abdominal aorta Abdominal aortogram Repositioning of the catheter in the abdominal aorta Bilateral iliofemoral angiography INDICATION Zachary claudication class III, Abnormal CTA, Peripheral artery disease Informed consent was obtained prior to the procedure. COMPLICATIONS None Estimated Blood Loss: Less than 10 mls TECHNIQUE 1% lidocaine used anesthetize right groin therefore arteries accessed via the Salinger technique and a 5 Liberian sheath was placed in the right femoral artery. Retrograde angiography was performed due to inability to easily pass the wire through the iliac artery. After showing severe stenosis in the right external iliac artery therapeutic heparin was administered and the 5 Liberian sheath was exchanged for a 6 Liberian sheath. An advantage wire was then used to traverse the stenosis in the right external iliac artery and a 7 mm x 40 mm balloon was deployed at 15 natalie reducing the stenosis to 10 to 20%. At this point a pigtail catheter was advanced and abdominal angiography was performed. The catheter was then repositioned and bilateral iliofemoral angiography was performed. At the end of the procedure the patient was [facility] removal ANGIOGRAPHIC RESULTS The suprarenal abdominal aorta is patent. Just below the renal arteries there appears to be a 20 to 30% concentric stenosis followed by a multilobular infrarenal abdominal aortic aneurysm. There appears to be an eccentric 70 to 80% calcified heavily atheromatous plaque approximately 3 cm above the common iliac artery bifurcation. The right common iliac artery is widely patent in its proximal segment with a distal 30% stenosis. The right internal iliac artery is patent. The right external iliac artery has tandem 90% in-stent restenotic lesions which extend into the right common femoral artery. The right common femoral artery is patent The left common iliac artery has a stent in its proximal side which is widely patent with minimal in-stent restenosis. The right external iliac artery has a 40% stenosis while the internal iliac artery is patent with mid vessel 90% stenosis. Left common femoral artery is patent. Right common iliac artery is widely patent and appears to have proximal calcification of approximately 30%. The left renal artery is singular and has a proximal calcified 40% stenosis IMPRESSION Severe in-stent restenosis within the right common iliac artery Successful angioplasty of the right common iliac artery severe disease reduced to 10 to 20% with angioplasty Persistent moderate to severe disease in the infrarenal abdominal aorta as described above all localized within a multi lobular abdominal aortic aneurysm Peripheral artery disease as described above Moderate nonflow limiting left renal artery stenosis with mild right renal artery stenosis PLAN 1. I would like to refer patient to vascular surgery. Because of patient's aneurysm I believe she should be offered therapy to increase the inflow to the bilateral common iliac arteries while possibly stenting the infrarenal abdominal aortic aneurysm 2. Refer to vascular surgery 3. Avoidance of tobacco products 4. Aspirin Plavix 5. LDL less than 55 Electronically signed by : Eddie Null MD 06/05/2021 13:49:51
[2021-06-05 14:22] LABS: CATHL Activated Clotting Time > 400 SEC (74-125)
[2021-06-05 14:31] LABS: CATHL Activated Clotting Time 173 SEC (74-125)
[2021-06-05 14:33] LABS: CATHL Activated Clotting Time 303 SEC (74-125)
== END 2021-06-05 18:18 | disposition home or self-care (01) ==
LOC: CATHLAB 09:24
PROVIDERS: PCP Nurse Practitioner Family; Visit Provider Internal Medicine
DX: E78.5 Hyperlipidemia, unspecified (principal); I10 Essential (primary) hypertension; I70.213 Atherosclerosis of native arteries of extremities with intermittent claudication, bilateral legs; I48.91 Unspecified atrial fibrillation; I25.10 Atherosclerotic heart disease of native coronary artery without angina pectoris; R20.0 Anesthesia of skin; Z95.1 Presence of aortocoronary bypass graft; T82.856A Stenosis of peripheral vascular stent, initial encounter; Y83.1 Surgical operation with implant of artificial internal device as the cause of abnormal reaction of the patient, or of later complication, without mention of misadventure at the time of the procedure; I77.1 Stricture of artery; E78.2 Mixed hyperlipidemia; I48.0 Paroxysmal atrial fibrillation; I65.23 Occlusion and stenosis of bilateral carotid arteries; I70.1 Atherosclerosis of renal artery
CPT/HCPCS: 36247; 37220; 75625; 75710; 85347; 99152; 99153; C1725; C1769; C1894; J1644; J2720; Q9966

== ENCOUNTER → 2021-11-26 10:33 | Outpatient (CLI) | payer MEDICARE, MEDICAID, SELFPAY ==
--- NOTE | 2021-11-26 | CA_ITS ---
APPROVED REPORT Exam: Pharmacologic Technologist: Hamida Felix, Ht: 5 ft 0 in Wt: 183 lbs BSA: 1.80 m2 HR: 58 bpm BP: 184/90 mmHg Rhythm: Sinus naomi, ST-T abns inferiorly and laterally Medical History Medical History: Hyperlipidemia, HTN Medications: Levothyroxine,,,,, Metoprolol,,,,, Asa,,,,, Losartan,,,,, Atorvastatin,,,,, Buspirone,,,,, CloPIdogrel,,,,, Famotidine,,,,, Ezetimbe,,,,, Cardiac Risk Factors: HTN, Hyperlipidemia, FHX of CAD, Smoking Stress Test Details Test: LEXISCAN HR Resting HR: 57 bpm Max Heart Rate (APMHR): 148.891836 bpm Max HR Achieved: 79 bpm Target HR (85% APMHR): 125.697082 bpm % of APMHR: 53.38 Recovery HR: 76 bpm BP Resting BP: 184/90 mmHg Max BP: 184/90 mmHg Recovery BP: 176.0/64.0 mmHg ECG Resting ECG: Sinus naomi, ST-T abns inferiorly and laterally Clinical Exercise duration: 04:00 min Highest Stage Achieved: Exercise capacity: 1.0 METs Stress ECG Conclusion During lexiscan pt experinced nausea, mild SOA, no CP noted. No arrhythmias noted. Mild exaggeration of baseline abns. Unremarkable lexiscan stress. Myoview images reported separately. Electronically signed by : Al Awad MD 11/27/2021 14:49:12
--- NOTE | 2021-11-26 10:34 | NM_ITS ---
APPROVED REPORT Exam: Nuclear Stress Test Indication: fatigue..lt arm pain Patient Location: Outpatient Stress Tech: Hamida CHURCH Tech:Dana Denney YAZMINKelsie RT(R)(N) Ht: 5 ft 0 in Wt: 188 lbs Bra Size: 42dd HR: 58 bpm BP: 184/90 mmHg BSA: 1.82 m2 History: fatigue..lt arm pain Procedure: Patient received a 0.4 mg of intravenous Lexiscan, resting heart rate 58 bpm, resting blood pressure 184/90 mmHg, with Lexiscan maximum heart rate achived was 79 bpm which is Less than 85 % of the maximum predicted heart rate and blood pressure was 138/90 mmHg. With Lexiscan, patient denied any complaint of chest pain. Electrocardiogram Resting electrocardiogram shows sinus rhythm, with Lexiscan there is less than 1.[address] segment depression noted from the baseline EKG. The EKG portion of the Lexiscan is nondiagnostic. Cardiac Stress and Resting SPECT Images: Cardiac Stress and Resting SPECT images were obtained using technetium 99m Myoview 31.5 mCi stress and 10.58 mCi at rest. Gated SPECT analysis of segmental wall motion and calculation of the ejection fraction also done. Prone images were also obtained. Cardiac stress and resting SPECT may show reversible ischemia involving the anterior, anterior apical and anteroseptal wall, computer derived ejection fraction is 50% with moderate anterior wall hypokinesis. Right ventricle is mildly enlarged with normal contractility. Conclusion: 1. The EKG portion of the Lexiscan is nondiagnostic. 2. Reversible ischemia involving the anterior, anterior apical and anteroseptal wall, computer derived ejection fraction 50% with segmental wall motion abnormality described above, right ventricle is mildly enlarged with normal contractility. 3. Abnormal Lexiscan Myoview study. Electronically signed by : Al Awad MD 11/27/2021 14:53:05
--- NOTE | 2021-11-26 10:36 | CA_ITS ---
FINAL REPORT TECHNIQUE: Color Doppler, duplex Doppler and mcdonough scale sonography of the bilateral neck arterial vasculature was performed. Velocities were measured in the carotid arteries. Stenosis evaluation based on the validated velocity criteria. CLINICAL HISTORY: SHANNON,HTN,HLD,SMOKER,HX RIGHT ENDARTECTOMY COMPARISON: 04/01/2021 FINDINGS: The peak systolic velocity of the right common carotid artery is 105 cm/s. The peak systolic velocity of the right internal carotid artery is 109 cm/s and end diastolic velocity 8 cm/s. The ICA/CCA ratio is 1.0. A mild to moderate amount of plaque is present. The right external carotid artery is patent. The right vertebral artery is patent with antegrade flow. The peak systolic velocity of the left common carotid artery is 99 cm/s. The peak systolic velocity of the left internal carotid artery is 316 cm/s and end diastolic velocity 44 cm/s. The ICA/CCA ratio is 4.1. A moderate to large amount of plaque is present. The left external carotid artery is patent.The left vertebral artery is patent with antegrade flow. IMPRESSION: Less than 50% carotid stenosis on the right. Increased velocities on the left suggesting greater than 70% stenosis. There were similar increased velocities in the left ICA on the prior. CTA or catheter angiogram could further evaluate. Reviewed, Interpreted and Dictated by Mateo Fox III, MD Transcribed by Marybeth Bronson Authenticated by Mateo Fox III, MD on 11/26/2021 12:15:18 PM [facility]
== END ==
PROVIDERS: PCP Nurse Practitioner Family; Visit Provider Urology
DX: E78.5 Hyperlipidemia, unspecified (principal); F17.200 Nicotine dependence, unspecified, uncomplicated; I10 Essential (primary) hypertension; I20.9 Angina pectoris, unspecified; I48.91 Unspecified atrial fibrillation; I51.7 Cardiomegaly; I65.23 Occlusion and stenosis of bilateral carotid arteries; I73.9 Peripheral vascular disease, unspecified; M79.602 Pain in left arm; R20.0 Anesthesia of skin; R93.1 Abnormal findings on diagnostic imaging of heart and coronary circulation; R93.5 Abnormal findings on diagnostic imaging of other abdominal regions, including retroperitoneum; Z95.1 Presence of aortocoronary bypass graft
CPT/HCPCS: 78452; 93017; 93880; A9502; J2785

== ENCOUNTER → 2021-12-07 14:07 | Outpatient (CLI) | payer MEDICARE, MEDICAID, SELFPAY ==
[2021-12-07 15:01] LABS: Basophils # 0.1 K/mm3 (0-0.2); Basophils % 0.9 % (0.1-2.0); Eosinophils % 0.5 % (0.1-12.0); Hematocrit 43.2 % (37.0-47.0); Hemoglobin 14.3 g/dL (12.2-16.2); Lymphocytes # 1.5 K/mm3 (0.7-4.5); Lymphocytes % 26.6 % (10-50); Mean Corpuscular HGB Conc 33.1 g/dL (31.8-35.4); Mean Corpuscular Volume 87.7 fl (81-99); Mean Platelet Volume 10.5 fl (7.4-10.4); Monocytes # 0.7 K/mm3 (0.1-1.0); Neutrophils # 3.3 K/mm3 (1.8-7.8); Neutrophils % 59.9 % (37.0-80.0); Platelet Count 228 K/mm3 (142-424); Red Blood Count 4.92 M/mm3 (4.20-5.40); Red Cell Distribution Width 14.5 % (11.5-17.5); White Blood Count 5.5 K/mm3 (4.8-10.8)
[2021-12-07 15:23] LABS: Anion Gap 14.5 mEq/L (5-15); Blood Urea Nitrogen 18 mg/dl (7-17); Calcium 8.9 mg/dl (8.4-10.2); Carbon Dioxide 20 mmol/L (22.0-30.0); Chloride 101 mmol/L (98-107); Estimated Glomerular Filt Rate 49 ml/min (>60); GFR (African American) 59 ML/MIN (>60); Glucose 94 mg/dl (74-100); Potassium 4.5 mmoL/L (3.5-5.1); Sodium 131 mmol/L (136-145)
== END ==
PROVIDERS: Visit Provider Nurse Practitioner Family
DX: E78.2 Mixed hyperlipidemia (principal); F17.200 Nicotine dependence, unspecified, uncomplicated; I15.0 Renovascular hypertension; I25.10 Atherosclerotic heart disease of native coronary artery without angina pectoris; I48.0 Paroxysmal atrial fibrillation; I63.9 Cerebral infarction, unspecified; I65.23 Occlusion and stenosis of bilateral carotid arteries; I70.1 Atherosclerosis of renal artery; I71.4 Abdominal aortic aneurysm, without rupture; J43.8 Other emphysema; M79.602 Pain in left arm; Z95.1 Presence of aortocoronary bypass graft; I10 Essential (primary) hypertension; Z01.812 Encounter for preprocedural laboratory examination; U07.1 COVID-19
CPT/HCPCS: 36415; 80048; 85025; C9803; U0003; U0005

== ENCOUNTER → 2021-12-21 16:50 | Outpatient (CLI) | payer MEDICARE, MEDICAID, SELFPAY | PROVIDERS: Visit Provider Internal Medicine | DX: Z11.52 Encounter for screening for COVID-19 (principal) ==

== ENCOUNTER → 2021-12-22 13:56 | Outpatient (CLI) | payer MEDICARE, MEDICAID, SELFPAY | PROVIDERS: Visit Provider Internal Medicine | DX: Z01.812 Encounter for preprocedural laboratory examination (principal); Z11.52 Encounter for screening for COVID-19 | CPT/HCPCS: C9803; U0003; U0005 ==

== ENCOUNTER 2021-12-24 09:04 | Day surgery (SDC) | payer MEDICARE, MEDICAID, SELFPAY ==
[2021-12-24] VITALS (8 sets, daily range): BP systolic 116–199; BP diastolic 50–71; PULSE 52–75; RESP 16–20; TEMP 36.4; O2SAT 93–97; BMI 35.9
--- NOTE | 2021-12-24 07:09 | IR_ITS ---
APPROVED REPORT Patient Location: Outpatient Supervisor Paint Department: SAMPSON Liz RT (R) PROCEDURES Attempted left heart catheterization Attempted left radial arterial access Attempted right radial arterial access Attempted left femoral arterial access Attempted right femoral arterial access INDICATION Coronary artery disease, History of coronary bypass surgery, Abnormal Myoview, Angina pectoris Informed consent was obtained prior to the procedure. COMPLICATIONS None Estimated Blood Loss: Less than 10 ML TECHNIQUE One percent lidocaine used to anesthetize the right groin. The right femoral artery was attempted to cannulate however this was unsuccessful. This procedure was repeated in the right groin the right anterior aspect of the right wrist as well as the anterior aspect of the left wrist. Neither bilateral radial artery nor bilateral femoral arteries could be accessed. Because of this the patient was taken off the table with plans to refer to a tertiary center for brachial artery access IMPRESSION Attempted bilateral femoral arterial access Attempted bilateral radial arterial access PLAN 1. Referred to [facility] for brachial artery catheterization 2. Continued standard therapy for ischemic heart disease Electronically signed by : Eddie Null MD 12/24/2021 12:11:24
== END 2021-12-24 13:40 | disposition home or self-care (01) ==
LOC: CATHLAB 09:06
PROVIDERS: PCP Nurse Practitioner Family; Visit Provider Internal Medicine
DX: E78.2 Mixed hyperlipidemia (principal); F17.200 Nicotine dependence, unspecified, uncomplicated; I15.0 Renovascular hypertension; I25.10 Atherosclerotic heart disease of native coronary artery without angina pectoris; I48.0 Paroxysmal atrial fibrillation; I65.23 Occlusion and stenosis of bilateral carotid arteries; I70.1 Atherosclerosis of renal artery; I71.4 Abdominal aortic aneurysm, without rupture; J43.8 Other emphysema; M79.602 Pain in left arm; Z95.1 Presence of aortocoronary bypass graft; Z53.09 Procedure and treatment not carried out because of other contraindication; E03.9 Hypothyroidism, unspecified; Z79.01 Long term (current) use of anticoagulants
CPT/HCPCS: 93459; 99152; 99153; C1769; J1644

== ENCOUNTER → 2022-03-29 14:13 | Outpatient (CLI) | payer MEDICARE, MEDICAID, SELFPAY ==
--- NOTE | 2022-03-29 14:21 | XR_ITS ---
FINAL REPORT CLINICAL HISTORY: ACUTE PAIN IN THE LEFT SHOULDER for 2 months radiating down to left hand. No known injury. COMPARISON: November 29, 2017 FINDINGS: LEFT SHOULDER: 3 views of the left shoulder were obtained. There is no acute fracture or dislocation. There is mild acromioclavicular joint degenerative change There is no soft tissue abnormality. IMPRESSION: Degenerative change with no acute fracture. Reviewed, Interpreted and Dictated by Mateo Fox III, MD Transcribed by Alejandrina Verma Authenticated and [facility]
== END ==
PROVIDERS: PCP Nurse Practitioner Family; Visit Provider Nurse Practitioner Family
DX: M25.512 Pain in left shoulder (principal)
CPT/HCPCS: 73030

== ENCOUNTER → 2022-07-16 12:41 | Outpatient (CLI) | payer MEDICARE, MEDICAID, SELFPAY ==
--- NOTE | 2022-07-16 12:46 | XR_ITS ---
FINAL REPORT CLINICAL HISTORY: numbness..shoulder pain FINDINGS: CERVICAL SPINE 5 views were obtained. There is no acute fracture. There is mild anterolisthesis of C4 on C5. There are mild and moderate degenerative changes. There is mild bilateral neural foraminal narrowing at C4-C5. There is mild right and moderate left neural foraminal narrowing at C3-C4. Postoperative changes are seen in the right side of the neck. IMPRESSION: Mild and moderate degenerative changes with neural foraminal narrowing as described. Reviewed, Interpreted and Dictated by Mateo Fox III, MD Transcribed by Dontrell Whitt Authenticated and [facility]
== END ==
PROVIDERS: PCP Nurse Practitioner Family; Visit Provider Orthopaedic Surgery
DX: M25.511 Pain in right shoulder (principal); R20.0 Anesthesia of skin
CPT/HCPCS: 72050

== ENCOUNTER → 2022-07-30 15:03 | Outpatient (CLI) | payer MEDICARE, MEDICAID, SELFPAY ==
--- NOTE | 2022-07-30 15:04 | MR_ITS ---
FINAL REPORT CLINICAL HISTORY: neck pain. POSTERIOR LEFT ARM PAIN THAT RADIATES DOWN ARM. TINGLING IN FINGERS LEFT HAND. FINDINGS: Multiplanar MR imaging of the cervical spine was performed without contrast. On the sagittal T2-weighted images, disc degeneration is seen throughout. There is mild anterolisthesis of C4 on 5. There is no evidence of fracture. The cervical spinal cord has an unremarkable appearance without evidence of mass, edema or syrinx. No significant canal stenosis is identified. The cervicomedullary junction is normal. C2-3: Uncovertebral osteophytes are present. There is a small central disc protrusion. There is no significant canal stenosis or neural foraminal narrowing. C3-4: Disc osteophyte complex is present with mild right and moderate left neural foraminal narrowing. C4-5: An annular bulge is present with mild left neural foraminal narrowing. C5-6: Disc osteophyte complex is present with mild right neural foraminal narrowing. C6-7: Disc osteophyte complex is present with moderate bilateral neural foraminal narrowing. C7-T1: There is no significant canal stenosis or neural foraminal narrowing. IMPRESSION: Multilevel degenerative disc disease and spondylosis. Small central disc protrusion at C2-3. Reviewed, Interpreted and Dictated by Mateo Fox III, MD Transcribed by Marybeth Bronson Authenticated and [facility]
== END ==
PROVIDERS: PCP Nurse Practitioner Family; Visit Provider Orthopaedic Surgery
DX: M54.12 Radiculopathy, cervical region (principal)
CPT/HCPCS: 72141; 76376

== ENCOUNTER 2022-10-14 14:00 | Outpatient (RCR) | payer MEDICARE, MEDICAID, SELFPAY | END 2022-10-14 14:05 | disposition home or self-care (01) | LOC: PT 14:00 | PROVIDERS: PCP Nurse Practitioner Family; Visit Provider Orthopaedic Surgery | DX: M47.22 Other spondylosis with radiculopathy, cervical region (principal) | CPT/HCPCS: 97010; 97012; 97014; 97110; 97163; 97164; G0283 ==

== ENCOUNTER 2022-12-30 13:47 | Outpatient (RCR) | payer MEDICARE, MEDICAID, SELFPAY | END 2023-03-01 15:00 | disposition home or self-care (01) | LOC: PT 13:47 | PROVIDERS: Visit Provider Internal Medicine | DX: I25.10 Atherosclerotic heart disease of native coronary artery without angina pectoris (principal); Z95.5 Presence of coronary angioplasty implant and graft | CPT/HCPCS: 93798 ==

== ENCOUNTER 2023-03-23 14:49 | Emergency (ER) | payer MEDICARE, MEDICAID, SELFPAY ==
[2023-03-23 14:50] VITALS: BP 150/72; PULSE 68; RESP 18; TEMP 36.7; O2SAT 98; BMI 34.3
--- NOTE | 2023-03-23 15:09 | PC.NURSE ---
ED MD AT BEDSIDE
--- NOTE | 2023-03-23 15:19 | HMH.EDGENADL ---
Discharge Plan Disposition Patient Disposition: Home, Self-Care Condition: Good Chief Complaint: Ear Prescriptions Prescriptions: No Action ezetimibe [Zetia] 10 mg tablet 10 mg PO DAILY albuterol sulfate [ProAir HFA] 90 mcg/actuation HFA aerosol inhaler 90 mcg INHALATION Q4H PRN (Reason: .) levothyroxine [Synthroid] 88 mcg tablet 88 mcg PO DAILY aspirin [Adult Low Dose Aspirin] 81 mg tablet,delayed release (DR/EC) 81 mg PO DAILY buspirone 10 mg tablet 10 mg PO BID famotidine 40 mg tablet 40 mg PO DAILY atorvastatin 80 MG tablet 80 mg PO DAILY metoprolol tartrate 100 MG tablet 100 mg PO DAILY clopidogrel 75 MG tablet 75 mg PO DAILY losartan 100 MG tablet 100 mg PO DAILY Referrals Follow up/Referrals: Jayleen Lawrence APRN [Primary Care Provider] - See instructions Clinical Impressions Clinical Impression: Abrasion of right ear canal Instructions Patient Instructions: How to Care for a Surgical Wound Discharge ED Provider: Guille [facility] Adult HPI General Chief complaint: Ear Stated complaint: Rt ear bleeding Time Seen by Provider: 03/23/23 14:55 Mode of Arrival: Ambulatory Source of Information: Patient Limitations: No Limitations Description of Symptoms (Recalled from ER Triage Doc. by RN): PT REPORTS PAINLESS BLEEDING FROM RIGHT EAR THAT STARTED AT 1300 YESTERDAY. History of Present Illness HPI narrative: This is a 72-year-old female who is on clopidogrel and stating she stuck a Q-tip in her ear yesterday and since then has had bleeding from the right ear. Patient denied any hearing loss. Patient denies her symptoms. Related Data Home Medications Medication Instructions Recorded Confirmed albuterol sulfate 90 mcg/actuation 90 mcg inhalation Q4H PRN . 12/08/17 02/03/23 aerosol inhaler (ProAir HFA) aspirin 81 mg tablet,delayed 81 mg PO DAILY Heart disease 12/08/17 02/03/23 release (Adult Low Dose Aspirin) levothyroxine 88 mcg tablet 88 mcg PO DAILY thyroid 12/08/17 02/03/23 (Synthroid) buspirone 10 mg tablet 10 mg PO BID . 01/24/18 02/03/23 famotidine 40 mg tablet 40 mg PO DAILY GERD 05/18/21 02/03/23 atorvastatin 80 mg tablet 80 mg PO DAILY High cholesterol 06/05/21 02/03/23 clopidogrel 75 mg tablet 75 mg PO DAILY Heart disease 06/05/21 02/03/23 losartan 100 mg tablet 100 mg PO DAILY High blood pressure 06/05/21 02/03/23 metoprolol tartrate 100 mg tablet 100 mg PO DAILY High blood pressure 06/05/21 02/03/23 ezetimibe 10 mg tablet (Zetia) 10 mg PO DAILY 06/16/21 02/03/23 Allergies Allergy/AdvReac Type Severity Reaction Status Date / Time cephalexin [CEPHALEXIN] Allergy Mild Unknown Verified 02/03/23 14:15 allergy reaction codeine [CODEINE] Allergy Mild Unknown Verified 02/03/23 14:15 allergy reaction diphenhydramine Allergy Mild Unknown Verified 02/03/23 14:15 [From BENADRYL] allergy reaction prochlorperazine Allergy Mild Unknown Verified 02/03/23 14:15 [PROCHLORPERAZINE] allergy reaction tetanus and diphtheria Allergy Mild Unknown Verified 02/03/23 14:15 toxoids allergy [TETANUS & DIPHTHERIA reaction TOXOIDS] Penicillins AdvReac Unknown Unknown Verified 02/03/23 14:15 allergy reaction PFSH PFSH Disclaimer: The information contained in this section may have been updated after the patient was seen, as this information can be updated by other users. Medical History Aneurysm of infrarenal abdominal aorta Blindness of left eye Carotid artery stenosis Left arm pain Tobacco dependence syndrome Family History (Updated 03/23/23 @ 15:13 by Dana Infante RN) Other No significant family history Social History Smoking Status: Current every day smoker tobacco type: cigarettes packs per day: 1 second hand exposure: Yes alcohol intake:
[2023-03-23 15:40] VITALS: BP 148/70; PULSE 70; RESP 17; TEMP 36.7; O2SAT 99
== END 2023-03-23 15:40 | disposition home or self-care (01) ==
PROVIDERS: Emergency Provider Emergency Medicine; PCP Nurse Practitioner Family
DX: S00.411A Abrasion of right ear, initial encounter (principal); W22.8XXA Striking against or struck by other objects, initial encounter; I71.43 Infrarenal abdominal aortic aneurysm, without rupture; I65.29 Occlusion and stenosis of unspecified carotid artery; F17.210 Nicotine dependence, cigarettes, uncomplicated
CPT/HCPCS: 99282; 99283

== ENCOUNTER 2024-05-29 14:11 | Outpatient (CLI) | payer MEDICARE, SELFPAY ==
--- NOTE | 2024-05-29 14:21 | XR_ITS ---
FINAL REPORT CLINICAL HISTORY: PAIN, KNOT ON LATERAL ELBOW FINDINGS: Left elbow Three views were obtained. There is no acute fracture or dislocation. The joint spaces appear normal. There is a large soft tissue density lateral to the distal humerus measuring 6.2 x 3.3 cm, may be related to soft tissue mass. IMPRESSION: Possible soft tissue mass as above. MRI could better evaluate. Reviewed, Interpreted and Dictated by Preet Thrasher MD Transcribed by Marybeth Bronson Authenticated and [facility]
--- NOTE | 2024-05-29 14:21 | XR_ITS ---
FINAL REPORT CLINICAL HISTORY: .PAIN, KNOT ON LATERAL ELBOW FINDINGS: Left humerus Two views were obtained. There is no acute fracture or dislocation. The joint spaces appear normal. There is a large soft tissue density better seen on the elbow series. IMPRESSION: Large soft tissue density better seen on the elbow series. Reviewed, Interpreted and Dictated by Preet Thrasher MD Transcribed by Marybeth Bronson Authenticated and [facility]
== END 2024-05-29 23:59 | disposition home or self-care (01) ==
LOC: RAD 14:14
PROVIDERS: PCP Nurse Practitioner; Visit Provider Nurse Practitioner
DX: M25.522 Pain in left elbow (principal)
CPT/HCPCS: 73060; 73080

== ENCOUNTER 2024-10-27 23:57 | Observation (INO) | payer MEDICARE, SELFPAY ==
[2024-10-27 23:58] VITALS: BP 270/78; BP 276/101; PULSE 79; RESP 18; TEMP 36.6; O2SAT 98; BMI 34.0
[2024-10-28] VITALS (37 sets, daily range): BP systolic 156–253; BP diastolic 48–175; PULSE 61–84; RESP 14–23; TEMP 36.4–36.6; O2SAT 94–99; BMI 35.1
--- NOTE | 2024-10-28 00:49 | XR_ITS ---
PROCEDURE INFORMATION: Exam: XR Chest Exam date and time: 10/28/2024 12:55 AM Age: 74 years old Clinical indication: Other: HTN TECHNIQUE: Imaging protocol: Radiologic exam of the chest. Views: 1 view. COMPARISON: CR CXR2V XR chest 2V 11/29/2017 10:17 AM FINDINGS: Lungs: Unremarkable. No consolidation. Pleural spaces: Unremarkable. No pleural effusion. No pneumothorax. Heart/Mediastinum: Evidence of prior CABG. No cardiomegaly. Vasculature: Unremarkable. Bones/joints: Unremarkable. IMPRESSION: No acute findings.
--- NOTE | 2024-10-28 00:55 | PC.NURSE ---
LET gel applied to left hand and left arm skin tears. Area cleaned with saline prior to application.
[2024-10-28] MEDS: COCAINE 4% TOPICAL SOLN 4ML BOTTLE 1 ML TP (00:57)
[2024-10-28] MEDS: LIDOCAINE 2% UROJET 10ML TP (00:57)
[2024-10-28] MEDS: EPINEPHrine 1 MG/ML AMPUL TP (00:57)
[2024-10-28 00:58] LABS: Albumin Level 4.1 g/dl (3.5-5.0); Chloride 103 mmol/L (98-107); Potassium 4.6 mmoL/L (3.5-5.1); Sodium 130 mmol/L (136-145)
[2024-10-28] MEDS: LABETALOL 20MG/4ML SYRINGE 10 MG IV ×2 (00:59→01:35)
[2024-10-28 01:00] LABS: Basophils # 0.1 K/mm3 (0-0.2); Basophils % 1.1 % (0.1-2.0); Blood Urea Nitrogen 13 mg/dl (7-17); Eosinophils # 0.6 K/mm3 (0.0-0.4); Eosinophils % 5.1 % (0.1-12.0); Estimated Glomerular Filt Rate 61 ml/min (>60); GFR (African American) 74 ML/MIN (>60); Hematocrit 45.3 % (37.0-47.0); Hemoglobin 15.1 g/dL (12.2-16.2); Lymphocytes # 2.5 K/mm3 (0.7-4.5); Lymphocytes % 21.1 % (10-50); Mean Corpuscular HGB Conc 33.3 g/dL (31.8-35.4); Mean Corpuscular Hemoglobin 28.4 pg (27.0-31.2); Mean Corpuscular Volume 85.3 fl (81-99); Mean Platelet Volume 12.2 fl (7.4-10.4); Monocytes # 1.3 K/mm3 (0.1-1.0); Monocytes % 10.7 % (1.7-9.3); Neutrophils # 7.3 K/mm3 (1.8-7.8); Neutrophils % 61.7 % (37.0-80.0); Platelet Count 290 K/mm3 (142-424); Red Blood Count 5.31 M/mm3 (4.20-5.40); Red Cell Distribution Width 13.7 % (11.5-17.5); White Blood Count 11.9 K/mm3 (4.8-10.8)
[2024-10-28 01:01] LABS: Alanine Aminotransferase 23 U/L (12-78); Albumin/Globulin Ratio 1.5 (1.1-1.8); Alkaline Phosphatase 84 U/L (38-126); Anion Gap 11.6 mEq/L (5-15); Aspartate Amino Transferase 32 U/L (14-36); Bilirubin,Total 0.8 mg/dl (0.2-1.3); Calcium 9.1 mg/dl (8.4-10.2); Carbon Dioxide 20 mmol/L (22.0-30.0); Globulin 2.7 g/dL (1.3-3.2); Glucose 124 mg/dl (74-100); Total Protein,Serum 6.8 g/dl (6.3-8.2)
[2024-10-28 01:13] LABS: Troponin I 0.08 ng/ml (0.00-0.034)
--- NOTE | 2024-10-28 01:30 | ECG_ITS ---
APPROVED REPORT Exam: Resting ECG HR:69 bpm ECG Measurements Heart Rate 69 AXES ID 186 P 49 QRSd 71 QRS -7 QT 365 T 122 QTc 383 Conclusion SINUS RHYTHM VOLTAGE CRITERIA FOR LVH [MEETS CRITERIA IN ONE OF: R(aVL), S(V1), R(V5), R(V5/V6)+S(V1)] POSSIBLE ANTERIOR MYOCARDIAL INFARCTION , PROBABLY OLD [30 ms Q WAVE IN V3/V4, OR R < 0.2 mV IN V4] PROBABLE INFERIOR MYOCARDIAL INFARCTION , PROBABLY OLD [35 ms Q WAVE IN II/aVF] MODERATE T-WAVE ABNORMALITY, CONSIDER LATERAL ISCHEMIA [-0.1+ mV T-WAVE IN I/aVL/V5/V6] T wave inversions in lead I, aVL without reciprocal changes, No STEMI Electronically signed by : JAYNE KAUFFMAN, 10/28/2024 04:39:37
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
[2024-10-28 02:14] LABS: HIV Combo NEGATIVE (Negative)
[2024-10-28 02:23] LABS: Hepatitis C Ab Qual. W/ RFX NEGATIVE (Negative)
[2024-10-28] MEDS: AMLODIPINE 5MG TABLET 5 MG PO ×2 (04:05→09:08)
[2024-10-28] MEDS: HYDRALAZINE HCL 25MG TABLET 50 MG PO (04:05)
--- NOTE | 2024-10-28 04:13 | PC.NURSE ---
Pt arrived to ICU Unit via wheelchair @03:55
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
[2024-10-28 04:54] LABS: Troponin I 0.07 ng/ml (0.00-0.034)
--- NOTE | 2024-10-28 06:56 | PC.NURSE ---
Pt AOx4. Pt has not voiced any complaints since arriving to floor. Ambulates to BR independently. BP has decreased since receiving BP medication when arriving to unit. DSG to left forearm in place. Call light within reach.
[2024-10-28 08:36] LABS: Troponin I 0.06 ng/ml (0.00-0.034)
[2024-10-28] MEDS: BUSPIRONE HCL 10 MG TABLET PO ×3 (09:08→20:04)
[2024-10-28] MEDS: CLOPIDOGREL 75MG TAB 75 MG PO (09:08)
[2024-10-28] MEDS: ASPIRIN EC 81MG TABLET 81 MG PO (09:08)
[2024-10-28] MEDS: ENOXAPARIN 40MG/0.4ML SYRINGE 40 MG SUBCUT (09:08)
[2024-10-28] MEDS: IRBESARTAN 150MG TAB 150 MG PO (09:09)
[2024-10-28] MEDS: LEVOTHYROXINE 88MCG (0.088MG) TAB 88 MCG PO (09:09)
[2024-10-28] MEDS: ATORVASTATIN 40MG TABLET 80 MG PO (09:09)
--- NOTE | 2024-10-28 09:36 | HMH.PHAINT1 ---
Pharmacy Intervention Comments: MEDICATION RECONCILIATION COMPLETE USING EXTERNAL PHARMACY FILL HISTORY.
[2024-10-28 10:52] LABS: Magnesium 1.6 mg/dl (1.6-2.3)
[2024-10-28 11:06] LABS: Troponin I 0.05 ng/ml (0.00-0.034)
--- NOTE | 2024-10-28 12:03 | PC.NURSE ---
report given to AMAYA Smith
--- NOTE | 2024-10-28 13:26 | PC.NURSE ---
report given to jeremie holbrook
--- NOTE | 2024-10-28 13:36 | PC.NURSE ---
pt arrived on floor by wc from icu
--- NOTE | 2024-10-28 15:38 | P.EN_ITS ---
Sharon Andrea is a 74-year-old female who was admitted for hypertensive emergency, NSTEMI. #Hypertensive emergency #NSTEMI #History of CAD ? Presented with blood pressure 220s over 140s. Improved with oral medications. ? Restarted home losartan 100 mg, started amlodipine 10 mg. ? Troponin elevated to 0.07, EKG without acute ischemic findings. ? Complex cardiac history with CABG, stents. ? NSTEMI is most likely related to hypertensive emergency at this time, patient complains of no chest pain, shortness of breath. ? Cardiology consulted, pending further recommendations. Last [facility] about 2 years ago with stents. ? Continue home aspirin, statin.
[2024-10-28] MEDS: AMLODIPINE 5MG TABLET 2.5 MG PO (16:22)
--- NOTE | 2024-10-28 18:39 | PC.NURSE ---
cleaned pts wound and changed dsg with non adhesive pad, kerlix and javi wrap. c/o pain to the lt arm but ref pain meds. no needs at this time
[2024-10-28] MEDS: FAMOTIDINE 20MG TABLET 20 MG PO (20:04)
[2024-10-29] VITALS: BP 155/60; PULSE 70; PULSE 81; RESP 17; TEMP 36.7; O2SAT 98
[2024-10-29 04:00] VITALS: BP 140/49; PULSE 70; PULSE 74; RESP 16; TEMP 36.6; O2SAT 95; BMI 36.5
[2024-10-29] MEDS: LEVOTHYROXINE 88MCG (0.088MG) TAB 88 MCG PO (06:22)
[2024-10-29 08:00] VITALS: BP 153/60; PULSE 70; PULSE 80; RESP 16; TEMP 36.8; O2SAT 97
[2024-10-29 08:05] LABS: Blood Urea Nitrogen 18 mg/dl (7-17); Calcium 8.6 mg/dl (8.4-10.2); Carbon Dioxide 17 mmol/L (22.0-30.0); Chloride 102 mmol/L (98-107); Creatinine Clearance Estimated 65 mL/min (50-200); Estimated Glomerular Filt Rate 54 ml/min (>60); GFR (African American) 65 ML/MIN (>60); Glucose 97 mg/dl (74-100); Potassium 4.4 mmoL/L (3.5-5.1)
[2024-10-29 08:19] LABS: Anion Gap 13.4 mEq/L (5-15); Sodium 128 mmol/L (136-145)
[2024-10-29 08:26] LABS: Basophils # 0.1 K/mm3 (0-0.2); Basophils % 0.9 % (0.1-2.0); Eosinophils # 0.5 K/mm3 (0.0-0.4); Eosinophils % 6.8 % (0.1-12.0); Hemoglobin 12.9 g/dL (12.2-16.2); Lymphocytes # 2.1 K/mm3 (0.7-4.5); Lymphocytes % 26.5 % (10-50); Mean Corpuscular HGB Conc 33.1 g/dL (31.8-35.4); Mean Corpuscular Volume 84.6 fl (81-99); Mean Platelet Volume 12.5 fl (7.4-10.4); Monocytes % 12.8 % (1.7-9.3); Neutrophils # 4.1 K/mm3 (1.8-7.8); Neutrophils % 52.7 % (37.0-80.0); Platelet Count 226 K/mm3 (142-424); Red Blood Count 4.61 M/mm3 (4.20-5.40); White Blood Count 7.8 K/mm3 (4.8-10.8)
[2024-10-29] MEDS: ATORVASTATIN 40MG TABLET 80 MG PO (08:33)
[2024-10-29] MEDS: AMLODIPINE 10MG TABLET 10 MG PO (08:33)
[2024-10-29] MEDS: ENOXAPARIN 40MG/0.4ML SYRINGE 40 MG SUBCUT (08:34)
[2024-10-29] MEDS: ASPIRIN EC 81MG TABLET 81 MG PO (08:34)
[2024-10-29] MEDS: CLOPIDOGREL 75MG TAB 75 MG PO (08:34)
[2024-10-29] MEDS: BUSPIRONE HCL 10 MG TABLET PO (08:34)
[2024-10-29] MEDS: IRBESARTAN 150MG TAB 150 MG PO (08:34)
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
--- NOTE | 2024-10-29 11:58 | HMH.PHAINT1 ---
Pharmacy Intervention Comments: COUNSELED PATIENT ON NEW MEDICATION AND STOPPED MEDICATION PRIOR TO DISCHARGE. PATIENT VERBALIZED UNDERSTANDING.
[2024-10-29 12:00] VITALS: PULSE 80
--- NOTE | 2024-10-31 10:12 | SW/DCPLANNER ---
Spoke with patient on the phone. Patient stated that she is doing well but just a little sore. Patient stated that she is aware of her upcoming appointments. Patient stated that she was able to roller picker her medicine from clinic pharmacy. Patient stated that she has no concerns or questions at this time. Maira Lai
== END 2024-10-29 12:49 | disposition home or self-care (01) ==
LOC: ER 10-28 02:35 → ICU 10-28 03:26 → 2ND 10-28 12:50
PROVIDERS: Nurse Practitioner Family; Admitting Provider Student in an Organized Health Care Education/Training Program; Emergency Provider Emergency Medicine; PCP Nurse Practitioner; Visit Provider Student in an Organized Health Care Education/Training Program
DX: I21.4 Non-ST elevation (NSTEMI) myocardial infarction (principal); S51.812A Laceration without foreign body of left forearm, initial encounter; S61.412A Laceration without foreign body of left hand, initial encounter; Y08.89XA Assault by other specified means, initial encounter; I16.1 Hypertensive emergency; I73.9 Peripheral vascular disease, unspecified; I25.10 Atherosclerotic heart disease of native coronary artery without angina pectoris; Z95.1 Presence of aortocoronary bypass graft; E78.2 Mixed hyperlipidemia; J43.8 Other emphysema; I16.0 Hypertensive urgency; Y09 Assault by unspecified means; R79.89 Other specified abnormal findings of blood chemistry; D72.829 Elevated white blood cell count, unspecified; E87.1 Hypo-osmolality and hyponatremia; E87.20 Acidosis, unspecified; Z79.899 Other long term (current) drug therapy
CPT/HCPCS: 12004; 36415; 71045; 80048; 80053; 83735; 84484; 85025; 86803; 87389; 93005; 99291; G0378; J0171; J1650; J1920

== ENCOUNTER 2024-11-15 12:50 | Outpatient (CLI) | payer MEDICARE, MEDICAID, SELFPAY ==
--- NOTE | 2024-11-15 13:04 | CA_ITS ---
APPROVED REPORT EXAM: Comprehensive 2D, Doppler, and color-flow Echocardiogram Director Cloud Transformation: Kate Funes RT(R) Ht: 4 ft 11 in Wt: 182lbs BSA: 1.77 BP: 201/66 mmHg Indications: PAF, abn EKG, Hyperlipidemia, SHANNON, CABG x 5, smoker 2D Dimensions LVEF (Mckeon's) 50.30 % F: 54 - 74 LV Volume 67.00 mL F: 46 - 106 LV Volume Index 37.9 mL/m2 F: 29 - 61 LA Volume 47.00 mL LA Volume Index 26.55 mL/m2 (M/F) 16-34 EF AP4 53.00 % EF AP2 47.4 % EF BP 50.3 % GL Strain -11.5 % M-Mode Dimensions RVDd 2.25 cm (0.9-2.6) LA Diam 3.87 cm (1.9-4.0) LVDd 4.62 cm (3.5-5.7) LVDs 3.46 cm (3.5-5.7) IVSd 0.96 cm (0.6-1.1) PWd 0.80 cm (0.6-1.1) EF (Teich) 49.60% FS 25.10% EDV (Teich) 98.30 mL ESV (Teich) 49.50 mL LV Diastology E Decel Time 150 (160-240 msec) E/A Ratio 0.9 Aortic Valve AoV Peak Gerald. 127.0 (50-130 cm/s) AO Peak GR. 6.50 mmHg AO Mean GR. 3.20 (<5 mmHg) AO VTI 26.1 (18-25 cm) Mitral Valve MV E Max Gerald. 142.0 (40-130 cm/s) MV A Velocity 166.0 (40-130 cm/s) E/A Ratio 0.86 MV PHT 44.0 ms Left Ventricle The left ventricle is normal size. The left ventricular systolic function is normal. The left ventricular ejection fraction is within the normal range. There is increased LV wall thickness. There is normal LV segmental wall motion. Transmitral Doppler flow pattern suggests impaired LV relaxation. LVEF is 55%. Right Ventricle The right ventricle is normal size. The right ventricular systolic function is normal. Atria Left atrium is mildly dilated. The right atrium size is normal. There is no Doppler evidence of interatrial shunt. Aortic Valve The aortic valve is mildly thickened. There is no aortic valvular stenosis. Mild aortic regurgitation. Mitral Valve The mitral valve is normal in structure. No evidence of mitral valve stenosis. Trace mitral regurgitation. Tricuspid Valve Tricuspid valve is grossly normal in structure and function. Trace tricuspid regurgitation. There is insufficient TR jet to estimate RVSP. Pulmonic Valve The pulmonary valve is normal in structure. Trace pulmonic regurgitation. Great Vessels The aortic root is normal in size. The ascending aorta is not well-visualized. IVC is normal in size and collapses >50% with inspiration. Pericardium There is no pericardial effusion. Other Information Study Quality: Fair Conclusion Normal biventricular systolic function. Mild LA dilation. Mild AI. Electronically signed by : Daksha Mayen MD 11/23/2024 23:54:48
== END 2024-11-15 23:59 | disposition home or self-care (01) ==
LOC: RT 12:51
PROVIDERS: PCP Nurse Practitioner; Visit Provider Physician Assistant
DX: I51.7 Cardiomegaly (principal); I35.1 Nonrheumatic aortic (valve) insufficiency; I48.0 Paroxysmal atrial fibrillation; R94.31 Abnormal electrocardiogram [ECG] [EKG]
CPT/HCPCS: 93306

== ENCOUNTER 2024-11-21 11:11 | Outpatient (CLI) | payer MEDICARE, MEDICAID, SELFPAY ==
--- NOTE | 2024-11-21 | CA_ITS ---
APPROVED REPORT Exam: Pharmacologic Technologist: Billie Flores Ht: 5 ft 0 in Wt: 182 lbs BSA: 1.79 m2 HR: 81 bpm BP: 147/60 mmHg Stress Test Details Test: Lexiscan HR Resting HR: 81 bpm Max Heart Rate (APMHR): 145 bpm Max HR Achieved: 106 bpm Target HR (85% APMHR): 123 bpm % of APMHR: 73 Recovery HR: 89 bpm BP Resting BP: 147.0/60.0 mmHg Max BP: 171.0/59.0 mmHg Recovery BP: 171.0/59.0 mmHg ECG Resting ECG: Sinus rhythm, PVC Stress ECG Conclusion Symptoms: Shortness of air, nausea Arrhythmias/Ectopy: Occasional PVCs ST-T Changes: None Lexiscan Electronically signed by : Daksha Mayen MD 11/25/2024 00:19:46
--- NOTE | 2024-11-21 11:11 | NM_ITS ---
APPROVED REPORT Exam: Nuclear Stress Test Indication: cad, cabg, htn, hyperlipidemia, tob use, fm hx, abn ekg Patient Location: Outpatient Stress Tech: Billie Flores AR Tech:SAMPSON Smith RT (R)(N)(M) Ht: 5 ft 0 in Wt: 182 lbs Bra Size: dd HR: 81 bpm BP: 147/60 mmHg BSA: 1.79 m2 TID: 1.11 History: cad, cabg, htn, hyperlipidemia, tob use, fm hx, abn ekg Procedure: Patient received 0.4 mg of intravenous Lexiscan, resting heart rate 81 bpm, resting blood pressure 147/60 mmHg, with Lexiscan maximum heart rate achieved was 103 bpm which is % of the maximum predicted heart rate and blood pressure was 137/58 mmHg. With Lexiscan, patient denied any complaint of chest pain. Cardiac Stress and Resting SPECT Images: Cardiac Stress and Resting SPECT images were obtained using technetium 99m Myoview 31.5 mCi stress and 10.60 mCi at rest. Resting and stress imaging in supine and prone positions demonstrate a medium sized, moderate, partially reversible perfusion defect in the anterior and anterolateral LV treviño. Gated imaging demonstrates mildly reduced LV systolic function. There is moderate hypokinesis of the basal and mid lateral LV treviño. LVEF is calculated at 48%. Conclusion: Medium sized, moderate, partially reversible perfusion defect in the anterior and anterolateral LV treviño. Findings are suggestive of partial reversible ischemia. Gated imaging demonstrates mildly reduced LV systolic function. There is moderate hypokinesis of the basal and mid lateral LV treviño. LVEF is calculated at 48%. Electronically signed by : Daksha Mayen MD 11/25/2024 00:15:11
[2024-11-21] MEDS: SODIUM CHLORIDE 0.9% 10ML SYR (RAD ONLY) 10 ML IV ×2 (11:20→13:15)
[2024-11-21] MEDS: REGADENOSON 0.4MG/5ML SYRINGE 0.4 MG IV (13:15)
[2024-11-21] MEDS: ISOTOPE MYOVIEW (PER STUDY) 1 DOSE IV (13:42)
== END 2024-11-21 23:59 | disposition home or self-care (01) ==
LOC: RAD 11:11
PROVIDERS: PCP Nurse Practitioner; Visit Provider Physician Assistant
DX: I25.10 Atherosclerotic heart disease of native coronary artery without angina pectoris (principal); R94.31 Abnormal electrocardiogram [ECG] [EKG]; R79.89 Other specified abnormal findings of blood chemistry; Z95.1 Presence of aortocoronary bypass graft
CPT/HCPCS: 78452; 93017; 93018; A9502; J2785

== ENCOUNTER 2025-03-08 14:52 | Outpatient (CLI) | payer MEDICARE, MEDICAID, SELFPAY ==
[2025-03-08] MEDS: ALBUTEROL 0.083% 2.5 MG/3 ML NEB IH (15:45)
--- NOTE | 2025-03-08 15:48 | PC.NURSE ---
PFT completed without incident. Albuterol 0.083% given via HHN, per written protocol, Pt tolerated tx well. Pt refused 6 Minute walk test.
== END 2025-03-08 23:59 | disposition home or self-care (01) ==
LOC: RT 14:53
PROVIDERS: PCP Nurse Practitioner; Visit Provider Internal Medicine Pulmonary Disease
DX: J44.9 Chronic obstructive pulmonary disease, unspecified (principal)
CPT/HCPCS: 94010; 94727; 94729

== ENCOUNTER 2025-03-15 10:26 | Outpatient (CLI) | payer MEDICARE, MEDICAID, SELFPAY ==
--- NOTE | 2025-03-15 10:30 | CT_ITS ---
FINAL REPORT TECHNIQUE: Thin section axial images were obtained through the lungs using a low-dose technique per lung cancer screening protocol. Reconstruction images were obtained using the axial data. Exam was performed using dose reduction technique. This study was performed with techniques to keep radiation doses as low as reasonably achievable (ALARA). Individualized dose reduction techniques using automated exposure control or adjustment of mA and/or kV according to the patient's size were employed. CLINICAL HISTORY: lung cancer screening current smoker 1.5ppd x60 years COMPARISON: None FINDINGS: CTDLvol: 2.90 DLP: 86.99 Current smoker 90 pack year history Lungs: No acute pulmonary abnormality. Multiple nodules are noted bilaterally. There is a 4 mm subpleural nodule in the right middle lobe, best seen on image #47 of series 4. There is a 4 mm subpleural nodule also in the right middle lobe. A 4 mm right lower lobe subpleural nodule adjacent to the major fissure is best seen on image #40 of series 4. There is a 3 mm right upper lobe nodule, best seen on image #32 of series 4. Lymph nodes: There are enlarged mediastinal lymph nodes present. There is a right paratracheal node measuring 26 mm in size, and a subcarinal node measuring 35 mm in size. No hilar adenopathy is noted. Mediastinum: Heart size is normal. Prominent coronary artery calcifications are present. Pleura/pericardium: No pleural or pericardial effusion. Other: There is a midline ventral hernia below the xiphoid which contains the anterior wall of the distal stomach. There is a hypodense lesion in the right liver, indeterminate. IMPRESSION: Multiple pulmonary nodules as described above, all less than 5 mm in size. Mediastinal adenopathy, likely reactive or neoplastic responsible for the S designation. Midline ventral hernia below the xiphoid which contains the anterior wall of the distal stomach. Prominent coronary artery calcifications, also responsible for the S designation. Lung RADS: 2S Recommendation: 2 to 3-month follow-up CT to reevaluate mediastinal adenopathy. Reviewed, Interpreted and Dictated by Fawn Presley MD Transcribed by [place]ia Gudino Authenticated and [facility]
--- OUTSIDE RECORDS SUMMARY | 2025-03-15 11:29 | XMS_ITS | CCD ---
Author Organization Unknown Care Team Providers Care Chief Order Dispatcher Name Role Phone Unavailable Primary Care Provider Unavailabl e Unavailable Chronic Care Management Unavaila ble Summary Purpose DataExchange Insurance Providers Payer name Policy type / Coverage type Covered republican ID Effective Begin Date Effective End Date [facility] [id number] Unknown Unknown Family History Family History data not found Medication Administered No Medication Administered data Reason For Visit No Reason For Visit data Medical Equipment No Medical Equipment data Advance Directives No Advance Directive data
== END 2025-03-15 23:59 | disposition home or self-care (01) ==
LOC: RAD 10:27
PROVIDERS: PCP Nurse Practitioner; Visit Provider Internal Medicine Pulmonary Disease
DX: I25.10 Atherosclerotic heart disease of native coronary artery without angina pectoris (principal); K43.9 Ventral hernia without obstruction or gangrene; R91.8 Other nonspecific abnormal finding of lung field; R59.0 Localized enlarged lymph nodes; F17.200 Nicotine dependence, unspecified, uncomplicated; Z12.2 Encounter for screening for malignant neoplasm of respiratory organs
CPT/HCPCS: 71271

== ENCOUNTER 2025-07-25 12:50 | Outpatient (CLI) | payer MEDICARE, MEDICAID, SELFPAY ==
--- NOTE | 2025-07-25 13:00 | CT_ITS ---
FINAL REPORT TECHNIQUE: Thin section axial images were obtained from the lung apices through the upper abdomen without contrast. This study was performed with techniques to keep radiation doses as low as reasonably achievable (ALARA). Individualized dose reduction techniques using automated exposure control or adjustment of mA and/or kV according to the patient's size were employed. CLINICAL HISTORY: Shortness of breath COMPARISON: CT low-dose 03/15/2025 FINDINGS: There are mildly prominent right subpectoral lymph nodes which are stable. Mediastinal lymphadenopathy is unchanged. For example, right paratracheal node measuring 48 mm was 27 mm on remeasurement. Subcarinal lymphadenopathy is also stable. No hilar lymphadenopathy. No pleural or pericardial effusion. Right upper lobe nodule measuring 7 mm on series 2 image 22 is unchanged. Subpleural right middle lobe 4 mm nodule is also stable. There is a stable subpleural right lower lobe nodule on series 2 image 45. No new nodules identified. Subpleural interstitial changes are also stable.. Limited, unenhanced evaluation of the upper abdomen demonstrates subcentimeter hypodense lesion in the medial left lobe of the liver, not well-seen on the previous exam due to technique. Hypodense lesion in the right lobe of the liver is stable. There is a midline ventral hernia inferior to the xiphoid which contains a portion of stomach but is unchanged.. There is no acute osseous abnormality. IMPRESSION: Stable pulmonary nodules. Subpleural predominant interstitial changes are stable. This does not have a pattern of UIP/IPF. Reviewed, Interpreted and Dictated by Fawn Presley MD Transcribed by Deb Suazo Authenticated and [facility]
--- OUTSIDE RECORDS SUMMARY | 2025-07-25 13:54 | XMS_ITS | CCD ---
Author Organization Unknown Care Team Providers Care Pre Press Proofer Name Role Phone Unavailable Primary Care Provider Unavailabl e Unavailable Chronic Care Management Unavaila ble Summary Purpose DataExchange Insurance Providers Payer name Policy type / Coverage type Covered constitution party ID Effective Begin Date Effective End Date [facility] [id number] Unknown Unknown Family History Family History data not found Medication Administered No Medication Administered data Reason For Visit No Reason For Visit data Medical Equipment No Medical Equipment data Advance Directives No Advance Directive data
== END 2025-07-25 23:59 | disposition home or self-care (01) ==
LOC: RAD 12:51
PROVIDERS: PCP Nurse Practitioner; Visit Provider Internal Medicine Pulmonary Disease
DX: J84.89 Other specified interstitial pulmonary diseases (principal); R91.8 Other nonspecific abnormal finding of lung field
CPT/HCPCS: 71250

== ENCOUNTER 2025-08-05 11:06 | Outpatient (CLI) | payer MEDICARE, MEDICAID, SELFPAY ==
--- OUTSIDE RECORDS SUMMARY | 2025-08-05 12:22 | XMS_ITS | CCD ---
Author Organization Unknown Care Team Providers Care Certified First Assistant Name Role Phone Unavailable Primary Care Provider Unavailabl e Unavailable Chronic Care Management Unavaila ble Summary Purpose DataExchange Insurance Providers Payer name Policy type / Coverage type Covered constitution party ID Effective Begin Date Effective End Date [facility] [id number] Unknown Unknown Family History Family History data not found Medication Administered No Medication Administered data Reason For Visit No Reason For Visit data Medical Equipment No Medical Equipment data Advance Directives No Advance Directive data
--- OUTSIDE RECORDS SUMMARY | 2025-08-05 12:22 | XMS_ITS | CCD ---
Author Organization Unknown Care Team Providers Care Auto Body Repairer Fiberglass Name Role Phone Unavailable Primary Care Provider Unavailabl e Unavailable Chronic Care Management Unavaila ble Summary Purpose DataExchange Insurance Providers Payer name Policy type / Coverage type Covered democrat ID Effective Begin Date Effective End Date [facility] [id number] Unknown Unknown Family History Family History data not found Medication Administered No Medication Administered data Reason For Visit No Reason For Visit data Medical Equipment No Medical Equipment data Advance Directives No Advance Directive data
[2025-08-05 13:24] LABS: C-Reactive Protein 3.4 mg/L (0-4)
[2025-08-06 14:30] LABS: Antinuclear Antibodies (ANA) Negative (Negative)
== END 2025-08-05 23:59 | disposition home or self-care (01) ==
LOC: LAB 11:07
PROVIDERS: PCP Nurse Practitioner; Visit Provider Internal Medicine Pulmonary Disease
DX: J84.9 Interstitial pulmonary disease, unspecified (principal); J30.9 Allergic rhinitis, unspecified
CPT/HCPCS: 36415; 82785; 86003; 86140; 86200; 86331; 86602; 86606; 86609